=== PATIENT | female | born 1965 | race Caucasian/White ===

== ENCOUNTER → 2017-03-26 | Outpatient (CLI) | payer OTHER ==
--- NOTE | 2017-03-27 06:28 | WWHP ---
DATE OF SERVICE: 03/26/2017 CHIEF COMPLAINT: The patient is here for her routine gynecologic exam. HPI: This is a 51-year-old G3, P3 with an LMP of 03/21/17. She states her last prior menstrual period was in 2014. She has been experiencing hot flashes. She denies taking any treatments for hot flashes. She is not on hormone replacement therapy. The patient states she had normal period flow this month after more than a year and a half of amenorrhea. PAST MEDICAL HISTORY: Degenerative disc disease, chronic hypertension, depression, gastroesophageal reflux disease, prediabetes and obesity. MEDICATIONS: 1. Zoloft 100 mg daily. 2. Sargent 7.5 mg b.i.d. p.r.n. 3. Lisinopril 1 daily. 4. Meloxicam 1 daily. 5. Simvastatin 1 daily. 6. Omeprazole 1 b.i.d. p.r.n. Allergies to KEFLEX. PAST SURGICAL HISTORY: section x2 and she had a tubal ligation with her second one. She has had approximately 5 D&Cs in the past for heavy periods in the and colonoscopy in 2015. PAST ARTIST SUSPECT HISTORY: She has had a period after 1-1/2 years of amenorrhea as above. She does have a history of heavy menses in the past. She has no history of STDs. SOCIAL HISTORY: She denies tobacco or alcohol and drug use. She is single and is not seeing anybody at this time. 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 FAMILY HISTORY: Father and brother had an aortic aneurysm. Mother had diabetes and hypertension. Two maternal grandparents had MA. REVIEW OF SYSTEMS: She has gained about 22 pounds over the last 2 years. She denies respiratory, cardiac or GI problems. PHYSICAL EXAM: Blood pressure is 132/98. Height 5 feet 4 inches. Weight 263 pounds. Temperature 98.7. Pulse 67. This is a well-developed, obese, white female who is alert and oriented x3 in no acute distress. HEENT is within normal limits. NECK: Supple without mass or thyromegaly. CHEST AND LUNGS: Clear to auscultation. HEART: Regular rate and rhythm. Breasts are without mass or discharge. Axillary exam is negative for adenopathy. BACK: Negative for CVA tenderness. Abdomen is obese, soft, nontender without palpable masses. PELVIC EXAM: Normal external genitalia. Cervix and vagina appear normal. There is no evidence of prolapse and minimal atrophy. The uterus is mid position, nongravid size and nontender. There are no palpable adnexal masses or tenderness. Bimanual examination is somewhat limited secondary to her size. Rectovaginal exam is negative for mass or tenderness and is negative for occult blood. EXTREMITIES: Nontender. IMPRESSION: 1. A 51-year-old female with episode of postmenopausal bleeding after 1-1/2 years of amenorrhea. 2. Normal gynecologic exam without active bleeding at this time. PLAN: 1. Pap smear was performed. 2. Self breast examination was discussed. 3. Mammogram is due and a slip was given to the patient for this. 4. The patient will be scheduled for an endometrial biopsy. The procedure was reviewed with the patient. The endometrial biopsy handout was given to the patient. 5. She will also return in one year and p.r.n. MTDD
== END | disposition home or self-care (01) ==
LOC: WWCWWP 07:58
PROVIDERS: ATTEND Obstetrics & Gynecology
DX: Z01.419 Encounter for gynecological examination (general) (routine) without abnormal findings (principal)

== ENCOUNTER → 2017-04-30 | Day surgery (SDC) | payer OTHER ==
--- NOTE | 2017-04-30 13:41 | P.PCN ---
Date of Procedure: 04/30/17 Preoperative Diagnosis: Menopausal bleeding Postoperative Diagnosis: Same Procedure(s) Performed: Endometrial Biopsy Anesthesia: none Surgeon: Wolf Gonzales Estimated Blood Loss (ml): 1 Pathology: none sent Condition: stable Disposition: same day Indications for Procedure: This was a 51 year old G3 PIII with the last normal menstrual period of 2014. She developed period like bleeding on 03/21/2017. She states that bleed was like a normal period. She again developed light bleeding today. Operative Findings: The cervix was somewhat stenotic which made the passing of the endometrial biopsy instrument difficult. Description of Procedure: The procedure was explained to the patient. We also discussed possible risks and complications. The patient was placed in the lithotomy position. Bimanual examination demonstrated a mid-position, non-gravid size uterus. A speculum was inserted into the vagina. There was a small amount of menstrual type blood in the vagina. The cervix and the vagina were prepped with Betadine solution. The anterior lip of the service was grasped with an Allys clamp. The cervix was grossly normal in appearance and nulliparous in appearance. The 3 mm endometrial biopsy instrument was placed into the cervix. The instrument was gently advanced and upon going through the endocervix the patient became very uncomfortable. Any attempt to advance instrument further was very painful for the patient. Because of this discomfort, the procedure was aborted. The maximum distance the instrument was placed was approximately 3.5 cm. No sampling of the endometrium was performed because of the patient's pain and incomplete insertion of the biopsy instrument. The patient felt much better after the instrument was removed. The postprocedure blood pressure was 153/79. The patient was discharged home in stable condition. She was instructed to call she has any problems. She will be referred for possible D&C.

== ENCOUNTER → 2017-05-01 | Outpatient (CLI) | payer OTHER ==
--- NOTE | 2017-05-01 23:21 | CONS ---
CONSULTATION DATE OF CONSULTATION: 05/01/2017 This 51-year-old lady has been evaluated in the sleep center for possible obstructive sleep apnea-hypopnea syndrome. HISTORY OF PRESENT ILLNESS/SLEEP-WAKE EVALUATION: Patient's usual sleep schedule on weekdays is from around 10 p.m. until 5 a.m., on weekend from around 10 or 11 p.m. until 5 or 6:30 a.m. Usually no problem with falling asleep. No TV in bedroom. She prefers to sleep on the side position. According to the family, she sleeps with loud snoring. Patient wakes up from sleep up to 4 times with nocturia and dry mouth. In the morning she wakes up tired, has trouble paying attention, falling asleep during the day, has problems with memory, concentration, claustrophobia. [place] Sleepiness Scale is in extremely high range at 22. She takes naps 2 times a day somewhere in the middle of the day. No history of hypnagogic hallucinations, sleep paralysis or cataplexy. PAST MEDICAL HISTORY: 1. Hypertension. 2. Acid reflux. 3. Hyperlipidemia. 4. Degenerative disc problem in the back and neck area. PAST SURGICAL HISTORY: 1. Cholecystectomy. 2. . MEDICATIONS: 1. Lisinopril. 2. Simvastatin. 3. Omeprazole. 4. Meloxicam. 5. Kelso. FAMILY HISTORY: Positive for obstructive sleep apnea and usage of CPAP in several members of her family, hypertension, hyperlipidemia, arthritis, thyroid problems, diabetes. REVIEW OF SYSTEMS: Awakenings from sleep. Significant excessive daytime sleepiness. Increasing weight for the last 5 years of about 62 pounds. SOCIAL HISTORY: Negative for smoking. Alcohol consumption very rarely. PHYSICAL EXAM: Pleasant lady without distress. VITAL SIGNS: BP 170/83, HR 80, RR 16, height 5 feet 4 inches, weight 262, BMI 44.9. Neck 15-1/2 inches in circumference. Temperature 97.7. Oxygen saturation on room air 97%. HEENT: PERRLA, EOMI. Evaluation of oropharynx showed tongue protrudes midline; extremely low position of soft palate. Mallampati 4. NECK: Supple. No JVD. Thyroid slightly palpable. LUNGS: Clear to percussion and to auscultation. Good air exchange. No wheezing or rhonchi. HEART: S1, S2 irregularly irregular. ABDOMEN: Obese. EXTREMITIES: No clubbing or cyanosis. SHAKER REPAIRER: Awake, alert and oriented x3. Cranial nerves 2 to 7 intact. There is no fasciculation or atrophy noted. No focal deficits observed. IMPRESSION: 1. Loud snoring, multiple awakenings from sleep, extremely low position of soft palate, Mallampati 4, significant excessive daytime sleepiness, [place] Sleepiness Scale of 22, obesity; obstructive sleep apnea-hypopnea syndrome. 2. Extremely high excessive daytime sleepiness with [place] Sleepiness Scale of 22, dictation necessity to include hypersomnia, including narcolepsy in differential diagnosis. 3. Obesity; BMI 44.9. 4. Hypertension. 5. Acid reflux. 6. Hyperlipidemia. 7. Degenerative disc problems in different levels of neck and back. 8. Status post cholecystectomy. 9. Status post . 10.Arthritis in hands, knees and feet. PLAN: 1. Polysomnography for evaluation of patient's breathing during sleep. 2. CPAP/BiPAP titration if sleep study confirms obstructive sleep apnea-hypopnea syndrome. 3. Preferable position during sleep on the side. 4. No driving if patient feels any sleepiness. Patient is aware of civil and criminal liability for unsafe driving. 5. I will see patient for follow-up visit to explain results of testing and following plan. Thank you very much for referring this patient for consultation. Sincerely, Channing York MD, PhD, FAASM Diplomat of [place] [employer] [place] [employer] [facility] [place] MMODL / CASSIEN: [id number] /
== END | disposition home or self-care (01) ==
LOC: SLEEP 16:22
PROVIDERS: ATTEND Internal Medicine
DX: G47.33 Obstructive sleep apnea (adult) (pediatric) (principal); E66.9 Obesity, unspecified; I10 Essential (primary) hypertension; K21.9 Gastro-esophageal reflux disease without esophagitis; E78.5 Hyperlipidemia, unspecified; M13.842 Other specified arthritis, left hand; M13.841 Other specified arthritis, right hand; M13.872 Other specified arthritis, left ankle and foot; M13.871 Other specified arthritis, right ankle and foot; Z68.41 Body mass index [BMI] 40.0-44.9, adult; Z98.890 Other specified postprocedural states; Z79.899 Other long term (current) drug therapy; Z79.1 Long term (current) use of non-steroidal anti-inflammatories (NSAID)
CPT/HCPCS: 99211

== ENCOUNTER 2018-07-03 10:08 | Emergency (ER) | payer OTHER ==
[2018-07-03 10:26] VITALS: BP 146/87; PULSE 86; RESP 16; TEMP 99.4
[2018-07-03 12:49] LABS: ALT 45 U/L (9-52); AST 27 U/L (14-36); Albumin 3.7 g/dL (3.5-5.0); Alkaline Phosphatase 86 U/L (38-126); Anion Gap 8 mmol/L; Blood Urea Nitrogen 19 mg/dL (7-17); Calcium 9.6 mg/dL (8.4-10.2); Carbon Dioxide 26 mmol/L (22-30); Chloride 103 mmol/L (98-107); Glucose 133 mg/dL (74-99); Potassium 4.6 mmol/L (3.5-5.1); Sodium 137 mmol/L (137-145); Total Bilirubin 0.4 mg/dL (0.2-1.3)
[2018-07-03 12:58] LABS: Basophils % (A) 1 %; Eosinophils # (A) 0.2 k/uL (0-0.7); Eosinophils % (A) 2 %; HCT 38.7 % (34.0-46.0); HGB 13.1 gm/dL (11.4-16.0); Lymphocytes # (A) 2.1 k/uL (1.0-4.8); Lymphocytes % (A) 28 %; MCHC 33.8 g/dL (31.0-37.0); MCV 82.7 fL (80.0-100.0); Mean Platelet Volume 6.8; Monocytes # (A) 0.3 k/uL (0-1.0); Monocytes % (A) 4 %; Neutrophils # (A) 4.7 k/uL (1.3-7.7); Neutrophils % (A) 63 %; Platelet Count 252 k/uL (150-450); RBC 4.68 m/uL (3.80-5.40); RDW 13.6 % (11.5-15.5); WBC 7.4 k/uL (3.8-10.6)
--- NOTE | 2018-07-03 14:41 | ED ---
Female Urogenital HPI - General Chief complaint: Vaginal Bleeding Stated complaint: Bleeding Time Seen by Provider: 07/03/18 13:05 Source: patient, RN notes reviewed Mode of arrival: ambulatory Limitations: no limitations - History of Present Illness Initial comments: This a 53-year-old female presents emergency Department chief complaint of vaginal bleeding. Patient states that she is postmenopausal states that she has not had a regular period in several years though she did admit that she had some slight bleeding and spotting one year ago and which she had a D&C by Dr. Weber. Patient states they believe that she had some fibroids causing her bleeding. Patient states this is worse than it was before. Patient states she called her RESTORATIVE ART EMBALMER who advised to go to the nearest emergency department. Patient denies any fever, chills, headache or dizziness. Patient states that she has diffuse abdominal pain. She denies any dysuria or urinary frequency. Denies any vaginal trauma. - Related Data Home Medications Medication Instructions Recorded Confirmed Lisinopril 10 mg PO DAILY 05/16/15 07/03/18 Meloxicam 15 mg PO DAILY 05/16/15 07/03/18 Sertraline [Zoloft] 100 mg PO DAILY 05/16/15 07/03/18 Atorvastatin [Lipitor] 20 mg PO DAILY 07/03/18 07/03/18 Omeprazole 20 mg PO BID 07/03/18 07/03/18 Allergies Allergy/AdvReac Type Severity Reaction Status Date / Time cephalexin [From Keflex] Allergy Rash/Hives Verified 07/03/18 13:50 Review of Systems ROS Statement: Those systems with pertinent positive or pertinent negative responses have been documented in the HPI. ROS Other: All systems not noted in ROS Statement are negative. Past Medical History Past Medical History: GERD/Reflux, Hypertension Additional Past Medical History / Comment(s): PT STATES SHE WAS TOLD PRE DIABETIC; diet control diabetic History of Any Multi-Drug Resistant Organisms: None Reported Past Surgical History: Section, Cholecystectomy, Tubal Ligation Additional Past Surgical History / Comment(s): PAIN INJECTIONS YEARS AGO; L Thumb joint replacement Past Anesthesia/Blood Transfusion Reactions: No Reported Reaction Past Psychological History: Depression Smoking Status: Never smoker Past Alcohol Use History: None Reported Past Drug Use History: None Reported - Past Family History Mother Family Medical History: Myocardial Infarction ([place]) Additional Family Medical History / Comment(s): GRANDPARENTS ON MOTHERS SIDE AGE 50'S OF [place] Father Additional Family Medical History / Comment(s): DAD AT AGE 63 OF AORTIC ANYRYSM General Exam General appearance: alert, in no apparent distress Head exam: Present: atraumatic, normocephalic, normal inspection Eye exam: Present: normal appearance, PERRL, EOMI. Absent: scleral icterus, conjunctival injection, periorbital swelling ENT exam: Present: normal exam, normal oropharynx, mucous membranes moist Neck exam: Present: normal inspection, full ROM. Absent: tenderness, meningismus, lymphadenopathy Respiratory exam: Present: normal lung sounds bilaterally. Absent: respiratory distress, wheezes, rales, rhonchi, stridor Cardiovascular Exam: Present: regular rate, normal rhythm, normal heart sounds. Absent: systolic murmur, diastolic murmur, rubs, gallop, clicks GI/Abdominal exam: Present: soft, tenderness (Diffuse [id number]), normal bowel sounds. Absent: distended, guarding, rebound, rigid Back exam: Absent: CVA tenderness (R), CVA tenderness (L) Skin exam: Present: warm, dry, intact, normal color. Absent: rash Course Vital Signs 07/03/18 10:21 Temperature 99.4 F Pulse Rate 86 Respiratory 16 Rate Blood Pressure 146/87 O2 Sat by Pulse 98 Oximetry Medical Decision Making - Medical Decision Making 53-year-old female presented emergency dept for postmenopausal bleeding. Patient had lab work, ultrasound which shows thickened endometrial lining which is heterogeneous. I did explain that this is concerning as she is postmenopausal. She will need to follow up with her RESTORATIVE ART EMBALMER. I did attempt to contact Dr. Weber with no return phone call. Patient states that she does understand and will follow-up on Friday. - Lab Data Result diagrams: 07/03/18 12:06 07/03/18 12:06 Lab Results 07/03/18 07/03/18 07/03/18 Range/Units 12:06 12:06 12:06 WBC 7.4 (3.8-10.6) k/uL RBC 4.68 (3.80-5.40) m/uL Hgb 13.1 (11.4-16.0) gm/dL Hct 38.7 (34.0-46.0) % MCV 82.7 (80.0-100.0) fL MCH 28.0 (25.0-35.0) pg MCHC 33.8 (31.0-37.0) g/dL RDW 13.6 (11.5-15.5) % Plt Count 252 (150-450) k/uL Neutrophils % 63 % Lymphocytes % 28 % Monocytes % 4 % Eosinophils % 2 % Basophils % 1 % Neutrophils # 4.7 (1.3-7.7) k/uL Lymphocytes # 2.1 (1.0-4.8) k/uL Monocytes # 0.3 (0-1.0) k/uL Eosinophils # 0.2 (0-0.7) k/uL Basophils # 0.0 (0-0.2) k/uL Sodium 137 (137-145) mmol/L Potassium 4.6 (3.5-5.1) mmol/L Chloride 103 (98-107) mmol/L Carbon Dioxide 26 (22-30) mmol/L Anion Gap 8 mmol/L BUN 19 H (7-17) mg/dL Creatinine 0.57 (0.52-1.04) mg/dL Est GFR (CKD-EPI)AfAm >90 (>60 ml/min/1.73 sqM) Est GFR (CKD-EPI)NonAf >90 (>60 ml/min/1.73 sqM) Glucose 133 H (74-99) mg/dL Calcium 9.6 (8.4-10.2) mg/dL Total Bilirubin 0.4 (0.2-1.3) mg/dL AST 27 (14-36) U/L ALT 45 (9-52) U/L Alkaline Phosphatase 86 (38-126) U/L Total Protein 7.0 (6.3-8.2) g/dL Albumin 3.7 (3.5-5.0) g/dL Urine Color Urine Appearance (Clear) Urine pH (5.0-8.0) Ur Specific Wilson (1.001-1.035) Urine Protein (Negative) Urine Glucose (UA) (Negative) Urine Ketones (Negative) Urine Blood (Negative) Urine Nitrite (Negative) Urine Bilirubin (Negative) Urine Urobilinogen (<2.0) mg/dL Ur Leukocyte Esterase (Negative) Urine RBC (0-5) /hpf Urine WBC (0-5) /hpf Urine Bacteria (None) /hpf Urine HCG, Qual (Not Detectd) Blood Type O Positive Blood Type Recheck CABO Indicated Antibody Screen NEGATIVE Spec Expiration Date 07/06/2018230507/03/18 07/03/18 Range/Units 13:27 14:20 WBC (3.8-10.6) k/uL RBC (3.80-5.40) m/uL Hgb (11.4-16.0) gm/dL Hct (34.0-46.0) % MCV (80.0-100.0) fL MCH (25.0-35.0) pg MCHC (31.0-37.0) g/dL RDW (11.5-15.5) % Plt Count (150-450) k/uL Neutrophils % % Lymphocytes % % Monocytes % % Eosinophils % % Basophils % % Neutrophils # (1.3-7.7) k/uL Lymphocytes # (1.0-4.8) k/uL Monocytes # (0-1.0) k/uL Eosinophils # (0-0.7) k/uL Basophils # (0-0.2) k/uL Sodium (137-145) mmol/L Potassium (3.5-5.1) mmol/L Chloride (98-107) mmol/L Carbon Dioxide (22-30) mmol/L Anion Gap mmol/L BUN (7-17) mg/dL Creatinine (0.52-1.04) mg/dL Est GFR (CKD-EPI)AfAm (>60 ml/min/1.73 sqM) Est GFR (CKD-EPI)NonAf (>60 ml/min/1.73 sqM) Glucose (74-99) mg/dL Calcium (8.4-10.2) mg/dL Total Bilirubin (0.2-1.3) mg/dL AST (14-36) U/L ALT (9-52) U/L Alkaline Phosphatase (38-126) U/L Total Protein (6.3-8.2) g/dL Albumin (3.5-5.0) g/dL Urine Color Red Urine Appearance Cloudy H (Clear) Urine pH 5.0 (5.0-8.0) Ur Specific Wilson 1.016 (1.001-1.035) Urine Protein 1+ H (Negative) Urine Glucose (UA) Negative (Negative) Urine Ketones Negative (Negative) Urine Blood Large H (Negative) Urine Nitrite Negative (Negative) Urine Bilirubin Negative (Negative) Urine Urobilinogen <2.0 (<2.0) mg/dL Ur Leukocyte Esterase Moderate H (Negative) Urine RBC >182 H (0-5) /hpf Urine WBC 81 H (0-5) /hpf Urine Bacteria Many H (None) /hpf Urine HCG, Qual Not Detected (Not Detectd) Blood Type Blood Type Recheck Antibody Screen Spec Expiration Date Disposition Clinical Impression: Postmenopausal bleeding, Endometrial thickening on ultrasound Disposition: HOME SELF-CARE Condition: Stable Instructions: Pelvic Pain in Women (ED) Additional Instructions: Please return to the Emergency Department if symptoms worsen or any other concerns. Is patient prescribed a controlled substance at d/c from ED?: No Referrals: Eliecer Oreilly MD [Primary Care Provider] - 1-2 days Ritu Weber MD [REFERRING] - 1-2 days Time of Disposition: 15:25
--- NOTE | 2018-07-03 14:44 | US ---
EXAMINATION TYPE: US transvaginal DATE OF EXAM: 07/03/2018 COMPARISON: CLINICAL HISTORY: Pain. Postmenopausal. Heavy machine. Hx of fibroid per patient. TECHNIQUE: Transvaginal (TV). 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 Patient unable to tolerate exam due to pain. Uterine fundus not well visuali zed due to overlying bowel gas 1. Uterus: Anteverted Fundus not well visualized due to overlying bowel gas. 2. Endometrium: Appears thickened and heterogenous. 3. Right Ovary: Obscured by overlying bowel gas 4. Left Ovary: Obscured by overlying bowel gas 5. Bilateral Adnexa: wnl 6. Posterior cul-de-sac: no free fluid IMPRESSION: 1. Thickened and heterogenous endometrium of uncertain etiology.
[2018-07-03 15:05] LABS: Appearance,Urine Cloudy (Clear); Bacteria,Urine Many /hpf; Bilirubin,Urine Negative (Negative); Blood,Urine Large (Negative); Color,Urine Red; Glucose,Urine (UA) Negative (Negative); Ketones,Urine Negative (Negative); Leukocyte Esterase,Urine Moderate (Negative); Nitrite,Urine Negative (Negative); Protein,Urine 1+ (Negative); RBC,Urine >182 /hpf (0-5); Specific Gravity,Urine 1.016 (1.001-1.035); Urobilinogen,Urine <2.0 mg/dL (<2.0); WBC,Urine 81 /hpf (0-5)
[2018-07-03] MEDS ORDERED: ACET/COD 300 MG/30 MG STARTER PACK 6 TAB BTL PO STA (15:24)
[2018-07-03] MEDS ORDERED: HYDROcodone/APAP 5-325MG 1 EACH TAB PO STA (15:25)
== END 2018-07-03 15:54 | disposition home or self-care (01) ==
LOC: EC 10:08
DX: N95.0 Postmenopausal bleeding (principal); R93.89 Abnormal findings on diagnostic imaging of other specified body structures; R10.84 Generalized abdominal pain; I10 Essential (primary) hypertension; K21.9 Gastro-esophageal reflux disease without esophagitis; F32.9 Major depressive disorder, single episode, unspecified; Z88.1 Allergy status to other antibiotic agents; Z79.1 Long term (current) use of non-steroidal anti-inflammatories (NSAID); Z79.899 Other long term (current) drug therapy; Z90.49 Acquired absence of other specified parts of digestive tract; Z98.51 Tubal ligation status
CPT/HCPCS: 36415; 76830; 80053; 81001; 81025; 85025; 86850; 86900; 86901; 99284

== ENCOUNTER 2018-09-01 13:43 | Emergency (ER) | payer OTHER ==
[2018-09-01 13:55] VITALS: RESP 18
--- NOTE | 2018-09-01 14:33 | ED ---
General Adult HPI - General Chief complaint: Chest Pain Stated complaint: Chest pain Source: patient, EMS Mode of arrival: EMS Limitations: no limitations - Related Data Home Medications Medication Instructions Recorded Confirmed Lisinopril 10 mg PO DAILY 05/16/15 09/01/18 Meloxicam 15 mg PO DAILY 05/16/15 09/01/18 Sertraline [Zoloft] 100 mg PO DAILY 05/16/15 09/01/18 Atorvastatin [Lipitor] 20 mg PO DAILY 07/03/18 09/01/18 Omeprazole 20 mg PO DAILY 07/03/18 09/01/18 Previous Rx's Medication Instructions Recorded Meclizine [Antivert] 25 mg PO TID PRN #20 tab 09/01/18 Allergies Allergy/AdvReac Type Severity Reaction Status Date / Time cephalexin [From Keflex] Allergy Rash/Hives Verified 09/01/18 13:54 Review of Systems ROS Statement: Those systems with pertinent positive or pertinent negative responses have been documented in the HPI. ROS Other: All systems not noted in ROS Statement are negative. Past Medical History Past Medical History: GERD/Reflux, Hypertension Additional Past Medical History / Comment(s): PT STATES SHE WAS TOLD PRE DIABETIC; diet control diabetic History of Any Multi-Drug Resistant Organisms: None Reported Past Surgical History: Section, Cholecystectomy, Tubal Ligation Additional Past Surgical History / Comment(s): PAIN INJECTIONS YEARS AGO; L Thumb joint replacement Past Anesthesia/Blood Transfusion Reactions: No Reported Reaction Past Psychological History: Depression Smoking Status: Never smoker Past Alcohol Use History: None Reported Past Drug Use History: None Reported - Past Family History Mother Family Medical History: Myocardial Infarction ([place]) Additional Family Medical History / Comment(s): GRANDPARENTS ON MOTHERS SIDE AGE 50'S OF [place] Father Additional Family Medical History / Comment(s): DAD AT AGE 63 OF AORTIC ANYRYSM General Exam Limitations: no limitations Course Vital Signs 09/01/18 09/01/18 13:44 15:03 Temperature 97.7 F Pulse Rate 87 73 Respiratory 18 18 Rate Blood Pressure 125/94 129/70 O2 Sat by Pulse 96 98 Oximetry Medical Decision Making - Medical Decision Making Dictation was produced using [employer] dictation software. please excuse any grammatical, word or spelling errors. Chief Complaint: 53-year-old female past medical history of GERD and hypertension presents after episodes of vertigo. History of Present Illness: She is 53-year-old female. She has past medical history of vertigo. 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 Patient states she was at work ambulating when she felt an intense roach of vertiginous symptoms. She reports that she feels as though the floor was calm enough to her. She braced herself immediately. She states that last for about 5 minutes. She did walk to the bathroom she felt she was stumbling with right-sided predilection. Patient feels fine now. She got EMS after the symptoms and was transferred to the emergency department for further evaluation. She feels a symptomatic at this time however she does feel a little nauseous. The ROS documented in this emergency department record has been reviewed and confirmed by me. Those systems with pertinent positive or negative responses have been documented in the HPI. All other systems are other negative and/or noncontributory. PHYSICAL EXAM: General Impression: Alert and oriented x3, not in acute distress HEENT: Normocephalic atraumatic, extra-ocular movements intact, pupils equal and reactive to light bilaterally, mucous membranes moist. Cardiovascular: Heart regular rate and rhythm, S1&S2 audible, no murmurs, rubs or gallops Chest: Lungs clear to auscultation bilaterally, no rhonchi, no wheeze, no rales Abdomen: Bowel sounds present, abdomen soft, non-tender, non-distended, no organomegaly Musculoskeletal: Pulses present and equal in all extremities, no peripheral edema Motor: Power 5/5 bilaterally, no focal deficits noted Neurological: CN II-XII grossly intact, no focal motor or sensory deficits noted Skin: Intact with no visualized rashes Psych: Normal affect and mood ED course: 53-year-old female with past medical history of GERD and hypertension since with episodic. On arrival are within acceptable limits. Patient is asymptomatic at this time. Patient has no neuro deficits. Laboratory evaluation obtained. CBC unremarkable. Mild panel unremarkable. Urinalysis is negative. Patient given Antivert and aspirin. Patient reevaluated and does not have recurrence of symptoms. Clinical presentation consistent with acute episodic peripheral vertigo. Patient able to ambulate and is tolerating by mouth. Patient prescription for Antivert. She is told to follow-up with primary care physician upon discharge. Patient given strict return precautions should she have recurrent symptoms. Patient understandable agreeable to disposition. EKG interpretation: Ventricular rate 78, normal sinus rhythm, IN interval 144, Q 70, QTC 476. No IN prolongation, no QTC prolongation, no ST or T-wave changes noted. Overall, this EKG is unremarkable - Lab Data Result diagrams: 09/01/18 14:23 09/01/18 14:23 Lab Results 09/01/18 09/01/18 09/01/18 Range/Units 14:23 14:23 14:23 WBC 8.9 (3.8-10.6) k/uL RBC 4.68 (3.80-5.40) m/uL Hgb 13.0 (11.4-16.0) gm/dL Hct 38.8 (34.0-46.0) % MCV 82.9 (80.0-100.0) fL MCH 27.7 (25.0-35.0) pg MCHC 33.4 (31.0-37.0) g/dL RDW 13.5 (11.5-15.5) % Plt Count 277 (150-450) k/uL Neutrophils % 70 % Lymphocytes % 22 % Monocytes % 4 % Eosinophils % 2 % Basophils % 0 % Neutrophils # 6.2 (1.3-7.7) k/uL Lymphocytes # 2.0 (1.0-4.8) k/uL Monocytes # 0.3 (0-1.0) k/uL Eosinophils # 0.2 (0-0.7) k/uL Basophils # 0.0 (0-0.2) k/uL Sodium 138 (137-145) mmol/L Potassium 4.3 (3.5-5.1) mmol/L Chloride 103 (98-107) mmol/L Carbon Dioxide 27 (22-30) mmol/L Anion Gap 8 mmol/L BUN 16 (7-17) mg/dL Creatinine 0.56 (0.52-1.04) mg/dL Est GFR (CKD-EPI)AfAm >90 (>60 ml/min/1.73 sqM) Est GFR (CKD-EPI)NonAf >90 (>60 ml/min/1.73 sqM) Glucose 150 H (74-99) mg/dL Calcium 9.2 (8.4-10.2) mg/dL Magnesium 1.7 (1.6-2.3) mg/dL Total Creatine Kinase 48 (30-135) U/L CK-MB (CK-2) 0.5 (0.0-2.4) ng/mL CK-MB (CK-2) Rel Index 1.0 Troponin I <0.012 (0.000-0.034) ng/mL Urine Color Urine Appearance (Clear) Urine pH (5.0-8.0) Ur Specific [place] (1.001-1.035) Urine Protein (Negative) Urine Glucose (UA) (Negative) Urine Ketones (Negative) Urine Blood (Negative) Urine Nitrite (Negative) Urine Bilirubin (Negative) Urine Urobilinogen (<2.0) mg/dL Ur Leukocyte Esterase (Negative) Urine RBC (0-5) /hpf Urine WBC (0-5) /hpf Ur Squamous Epith Cells (0-4) /hpf Urine Bacteria (None) /hpf Urine Mucus (None) /hpf 09/01/18 Range/Units 15:05 WBC (3.8-10.6) k/uL RBC (3.80-5.40) m/uL Hgb (11.4-16.0) gm/dL Hct (34.0-46.0) % MCV (80.0-100.0) fL MCH (25.0-35.0) pg MCHC (31.0-37.0) g/dL RDW (11.5-15.5) % Plt Count (150-450) k/uL Neutrophils % % Lymphocytes % % Monocytes % % Eosinophils % % Basophils % % Neutrophils # (1.3-7.7) k/uL Lymphocytes # (1.0-4.8) k/uL Monocytes # (0-1.0) k/uL Eosinophils # (0-0.7) k/uL Basophils # (0-0.2) k/uL Sodium (137-145) mmol/L Potassium (3.5-5.1) mmol/L Chloride (98-107) mmol/L Carbon Dioxide (22-30) mmol/L Anion Gap mmol/L BUN (7-17) mg/dL Creatinine (0.52-1.04) mg/dL Est GFR (CKD-EPI)AfAm (>60 ml/min/1.73 sqM) Est GFR (CKD-EPI)NonAf (>60 ml/min/1.73 sqM) Glucose (74-99) mg/dL Calcium (8.4-10.2) mg/dL Magnesium (1.6-2.3) mg/dL Total Creatine Kinase (30-135) U/L CK-MB (CK-2) (0.0-2.4) ng/mL CK-MB (CK-2) Rel Index Troponin I (0.000-0.034) ng/mL Urine Color Yellow Urine Appearance Clear (Clear) Urine pH 5.0 (5.0-8.0) Ur Specific [place] 1.012 (1.001-1.035) Urine Protein 1+ H (Negative) Urine Glucose (UA) Negative (Negative) Urine Ketones Negative (Negative) Urine Blood Negative (Negative) Urine Nitrite Negative (Negative) Urine Bilirubin Negative (Negative) Urine Urobilinogen <2.0 (<2.0) mg/dL Ur Leukocyte Esterase Negative (Negative) Urine RBC <1 (0-5) /hpf Urine WBC 5 (0-5) /hpf Ur Squamous Epith Cells 2 (0-4) /hpf Urine Bacteria Occasional H (None) /hpf Urine Mucus Rare H (None) /hpf Disposition Clinical Impression: Vertigo Disposition: HOME SELF-CARE Condition: Good Instructions: Dizziness (ED) Prescriptions: Meclizine [Antivert] 25 mg PO TID PRN #20 tab PRN Reason: Vertigo Is patient prescribed a controlled substance at d/c from ED?: No Referrals: Eliecer Oreilly MD [Primary Care Provider] - 1-2 days Time of Disposition: 16:56
[2018-09-01 14:47] LABS: Basophils % (A) 0 %; Eosinophils # (A) 0.2 k/uL (0-0.7); Eosinophils % (A) 2 %; HCT 38.8 % (34.0-46.0); Lymphocytes % (A) 22 %; MCH 27.7 pg (25.0-35.0); MCHC 33.4 g/dL (31.0-37.0); MCV 82.9 fL (80.0-100.0); Mean Platelet Volume 6.7; Monocytes # (A) 0.3 k/uL (0-1.0); Monocytes % (A) 4 %; Neutrophils # (A) 6.2 k/uL (1.3-7.7); Neutrophils % (A) 70 %; Platelet Count 277 k/uL (150-450); RBC 4.68 m/uL (3.80-5.40); RDW 13.5 % (11.5-15.5); WBC 8.9 k/uL (3.8-10.6)
[2018-09-01] MEDS ORDERED: MECLIZINE 12.5 MG TAB PO STA (14:48)
[2018-09-01] MEDS ORDERED: ASPIRIN 81 MG PO STA (14:59)
[2018-09-01 15:07] LABS: Anion Gap 8 mmol/L; Blood Urea Nitrogen 16 mg/dL (7-17); Calcium 9.2 mg/dL (8.4-10.2); Carbon Dioxide 27 mmol/L (22-30); Chloride 103 mmol/L (98-107); Glucose 150 mg/dL (74-99); Magnesium 1.7 mg/dL (1.6-2.3); Potassium 4.3 mmol/L (3.5-5.1); Sodium 138 mmol/L (137-145)
[2018-09-01 15:31] LABS: Appearance,Urine Clear (Clear); Bacteria,Urine Occasional /hpf; Bilirubin,Urine Negative (Negative); Blood,Urine Negative (Negative); Color,Urine Yellow; Glucose,Urine (UA) Negative (Negative); Ketones,Urine Negative (Negative); Leukocyte Esterase,Urine Negative (Negative); Mucus,Urine Rare /hpf; Nitrite,Urine Negative (Negative); Protein,Urine 1+ (Negative); RBC,Urine <1 /hpf (0-5); Specific Gravity,Urine 1.012 (1.001-1.035); Squamous Epithelial Cell,Urine 2 /hpf (0-4); Urobilinogen,Urine <2.0 mg/dL (<2.0)
[2018-09-01 15:44] LABS: Creatine Kinase 48 U/L (30-135)
[2018-09-01 15:58] LABS: Creatine Kinase MB 0.5 ng/mL (0.0-2.4); Troponin I <0.012 ng/mL (0.000-0.034)
--- NOTE | 2018-09-01 16:08 | XR ---
EXAMINATION TYPE: XR chest 2V DATE OF EXAM: 09/01/2018 COMPARISON: 07/31/2015 HISTORY: Intermittent chest pain with nausea and near syncope for 2 days TECHNIQUE: Frontal and lateral views of the chest are obtained. FINDINGS: There is no focal air space opacity, pleural effusion, or pneumothorax seen. The cardiac silhouette size is within normal limits. The osseous structures are intact. Minimal multilevel dege nerative changes of the thoracic spine are noted. IMPRESSION: No acute cardiopulmonary process.
[2018-09-01 17:22] VITALS: BP 132/91; PULSE 84; TEMP 97.8
== END 2018-09-01 17:20 | disposition home or self-care (01) ==
LOC: EC 13:43
DX: R42 Dizziness and giddiness (principal); R07.9 Chest pain, unspecified; K21.9 Gastro-esophageal reflux disease without esophagitis; I10 Essential (primary) hypertension; F32.9 Major depressive disorder, single episode, unspecified; E11.9 Type 2 diabetes mellitus without complications; Z79.899 Other long term (current) drug therapy; Z79.1 Long term (current) use of non-steroidal anti-inflammatories (NSAID); Z88.1 Allergy status to other antibiotic agents; Z96.692 Finger-joint replacement of left hand
CPT/HCPCS: 36415; 71046; 80048; 81001; 82550; 82553; 83735; 84484; 85025; 93005; 99285

== ENCOUNTER → 2018-09-28 | Outpatient (CLI) | payer OTHER ==
--- NOTE | 2018-09-28 22:10 | CT ---
EXAMINATION TYPE: CT brain wo con DATE OF EXAM: 09/28/2018 COMPARISON: None HISTORY: Syncope and loss of balance per order. CT DLP: 1168 mGycm. Automated Exposure Control for Dose Reduction was Utilized. TECHNIQUE: CT scan of the head is performed without contrast. FINDINGS: There is no acute intracranial hemorrhage, mass effect, or midline shift identified. The ventricles and sulci are within normal limits in size. The globes are intact bilaterally. Mild to m oderate lobulated mucosal thickening inferior left maxillary sinus is redemonstrated. Otherwise paran robert sinuses are clear. Globes are intact bilaterally. No suspicious opacification mastoid air cells is present. IMPRESSION: No acute intracranial hemorrhage or midline shift is seen.
--- NOTE | 2018-09-29 10:03 | US ---
EXAMINATION TYPE: US carotid duplex BILAT DATE OF EXAM: 09/28/2018 COMPARISON: CLINICAL HISTORY: G45.9 TIA; R59 Syncope; R26.9 Loss of balance. HTN, no hx of TIA per patient EXAM MEASUREMENTS: RIGHT: Peak Systolic Velocity (PSV) cm/sec ----- Right CCA: 77.8 ----- Right ICA: 87.7 ----- Right ECA: 95.4 ICA/CCA ratio: 1.1 RIGHT: End Diastole cm/sec ----- Right CCA: 21.6 ----- Right ICA: 22.7 ----- Right ECA: 16.1 LEFT: Peak Systolic Velocity (PSV) cm/sec ----- Left CCA: 73.4 ----- Left ICA: 82.8 ----- Left ECA: 88.0 ICA/CCA ratio: 1.1 LEFT: End Diastole cm/sec ----- Left CCA: 20.5 ----- Left ICA: 24.5 ----- Left ECA: 14.1 VERTEBRALS (direction of flow): Right Vertebral: Antegrade Left Vertebral: Antegrade Rhythm: Normal No elevated velocities, significant stenosis, plaque or wall thickening. Grayscale, color Doppler, spectral Doppler imaging performed of the carotid arteries IMPRESSION: No hemodynamic significant stenosis of the proximal internal carotid arteries bilaterall y by Doppler criteria, an indirect measurement of carotid stenosis
== END | disposition home or self-care (01) ==
LOC: RADCTMAIN 17:08
PROVIDERS: ATTEND Internal Medicine
DX: R55 Syncope and collapse (principal); R26.9 Unspecified abnormalities of gait and mobility; Z88.1 Allergy status to other antibiotic agents
CPT/HCPCS: 70450; 93880

== ENCOUNTER → 2020-10-27 | Outpatient (CLI) | payer OTHER ==
--- NOTE | 2020-10-27 09:31 | XR ---
Left foot HISTORY: Left foot pain 3 views of the left foot There is a mild hallux valgus deformity with osteoarthritic change. Bone mineralization is reduced. S ome medial subluxation noted at the metatarsophalangeal joint of the third digit. No fracture or disl ocation. There is a plantar cannula spur. Some spurring present at the intertarsal joints, tarsometat arsal joints. IMPRESSION: Osteoarthritis and additional findings above.
== END | disposition home or self-care (01) ==
LOC: RADXRMAIN 08:11
PROVIDERS: ATTEND Internal Medicine
DX: M19.072 Primary osteoarthritis, left ankle and foot (principal); M21.072 Valgus deformity, not elsewhere classified, left ankle; M77.32 Calcaneal spur, left foot; S93.145A Subluxation of metatarsophalangeal joint of left lesser toe(s), initial encounter

== ENCOUNTER → 2022-04-30 | Outpatient (CLI) | payer OTHER ==
--- NOTE | 2022-04-30 15:47 | XR ---
EXAMINATION TYPE: XR cervical spine comp DATE OF EXAM: 04/30/2022 COMPARISON: NONE HISTORY: Pain TECHNIQUE: Four views are submitted. FINDINGS: The odontoid is intact. There are no compression deformities. The prevertebral soft tissue structur es are within normal limits. Severe degenerative disc disease C4-5, C5-6 and C6-C7 with posterior sp ondylosis. There is bilateral foraminal encroachment. IMPRESSION: 1. Severe degenerative disc disease at multiple levels with posterior spondylosis and bilateral maritza inal encroachment. Recommend follow-up MRI..
--- NOTE | 2022-04-30 15:56 | XR ---
EXAM TYPE: LUMBAR SPINE X RAY SERIES COMPARISON: NONE HISTORY: Pain TECHNIQUE: 4 views are submitted. FINDINGS: Alignment is anatomic. The pedicles are intact. The transverse processes are intact. There is no s pondylolysis or spondylolisthesis. Surgical clips in the gallbladder fossa. IMPRESSION: 1. Severe degenerative disc disease L4-L5. Vacuum disc and posterior spondylosis suspected. Severe de generative disc disease L4-L5 with vacuum disc recommend follow-up MRI..
--- NOTE | 2022-04-30 16:01 | XR ---
EXAMINATION TYPE: XR thoracic spine 2V DATE OF EXAM: 04/30/2022 COMPARISON: NONE HISTORY: Pain TECHNIQUE: 3 views submitted FINDINGS: Alignment is anatomic. There is no compression deformities. Multilevel moderate to severe hypertroph ic and degenerative disc disease involving the mid and lower thoracic spine.. Surgical clips in the right upper quadrant. IMPRESSION: 1. Multilevel hypertrophic and degenerative changes of the spine most marked involving the lower thor acic spine. Recommend MRI..
== END | disposition home or self-care (01) ==
LOC: RADXRMAIN 11:54
PROVIDERS: ATTEND Nurse Practitioner Family
DX: M50.323 Other cervical disc degeneration at C6-C7 level (principal); M47.816 Spondylosis without myelopathy or radiculopathy, lumbar region; M47.812 Spondylosis without myelopathy or radiculopathy, cervical region; M51.36 Other intervertebral disc degeneration, lumbar region; M47.814 Spondylosis without myelopathy or radiculopathy, thoracic region
CPT/HCPCS: 72050; 72070; 72110

== ENCOUNTER → 2022-11-20 | Outpatient (CLI) | payer OTHER ==
[2022-11-20 09:33] VITALS: BP 117/83; PULSE 84; RESP 18; TEMP 98.5
--- NOTE | 2022-11-20 09:49 | P.CONS ---
History of Present Illness - Reason for Consult Consult date: 11/20/22 - Chief Complaint Lower back and left leg pain - History of Present Illness This is a 57-year-old morbidly obese lady with long-standing history of lower back pain and recent radiation to the left ankle with occasional tingling in the left leg. The patient tried physical therapy previously with limited results. She never had any surgeries on her back. Her pain gets worse with any activity especially standing and walking for too long and improves by stretching. The pain occasionally wakes her up at night but she denies any bowel or bladder dysfunction. She uses Mobic for her pain and also marijuana pills as she states. She denies tobacco. The patient is applying for SSI. She has history of diabetes and hypertension She had laparoscopic cholecystectomy Review of Systems Constitutional: Denies chills, Denies fever Cardiovascular: Denies chest pain, Denies shortness of breath Respiratory: Denies cough Musculoskeletal: Reports as per HPI Integumentary: Denies pruritus, Denies rash Neurological: Reports as per HPI Endocrine: Reports as per HPI, Reports high blood sugars Past Medical History Past Medical History: GERD/Reflux, Hypertension Additional Past Medical History / Comment(s): PT STATES SHE WAS TOLD PRE DIABETIC; diet control diabetic History of Any Multi-Drug Resistant Organisms: None Reported Past Surgical History: Section, Cholecystectomy, Tubal Ligation Additional Past Surgical History / Comment(s): PAIN INJECTIONS YEARS AGO; L Thumb joint replacement Past Anesthesia/Blood Transfusion Reactions: No Reported Reaction Smoking Status: Unknown if ever smoked - Past Family History Mother Family Medical History: Myocardial Infarction ([place]) Additional Family Medical History / Comment(s): GRANDPARENTS ON MOTHERS SIDE AGE 50'S OF [place] Father Additional Family Medical History / Comment(s): DAD AT AGE 63 OF AORTIC ANYRYSM Medications and Allergies Home Medications Medication Instructions Recorded Confirmed Type Meloxicam 15 mg PO DAILY 05/16/15 09/01/18 History Sertraline [Zoloft] 100 mg PO DAILY 05/16/15 09/01/18 History lisinopriL [Lisinopril] 10 mg PO DAILY 05/16/15 09/01/18 History Atorvastatin [Lipitor] 20 mg PO DAILY 07/03/18 09/01/18 History Omeprazole 20 mg PO DAILY 07/03/18 09/01/18 History Meclizine [Antivert] 25 mg PO TID PRN #20 tab 09/01/18 Rx Allergies Allergy/AdvReac Type Severity Reaction Status Date / Time cephalexin [From Keflex] Allergy Rash/Hives Verified 09/01/18 13:54 Physical Exam Vitals: Vital Signs Temp Pulse Resp BP Pulse Ox 11/20/22 09:11 98.5 F 84 18 117/83 96 - Constitutional General appearance: morbidly obese - EENT Eyes: PERRLA - Neurologic Neuro exam of the lower extremities showed normal and symmetrical deep tendon reflexes and normal muscle strength in the major muscle groups. Positive tenderness in the lumbar paravertebral musculature Significant tenderness around the right sacral joint Positive Armond's test on the right side Straight leg raising test is negative bilaterally Neurologic: CNII-XII intact - Psychiatric Psychiatric: A&O x's 3, appropriate affect, intact judgment & insight Results Results: An old MRI from 2014 showed severe degenerative disc disease at L4 5 and L5-S1 levels with no neural foraminal or central canal stenosis. Assessment and Plan Plan: This is a 47-year-old morbidly obese lady with the following diagnoses: Left lumbar radiculopathy: Started recently with no recent MRI of the lumbar spine to exactly what level is involved. The last MRI showed only degenerative disc disease at multiple levels and no neuroforaminal stenosis or central canal stenosis at that time in 2014. We might need to order an MRI without contrast of the lumbar spine. Lumbar degenerative disc disease: Severe at L4 5 and L5-S1 levels Right sacroiliitis: Positive tenderness around the sacroiliac joint and significant pain with Armond's test on the right side. She may benefit from getting right sacroiliac joint steroid injection under fluoroscopic guidance. I will try to get approval for the lumbar spine MRI without contrast for further workup for her recent left lumbar radiculopathy. Meanwhile we can schedule her for right-sided grade joint steroid injection under fluoroscopic guidance since this is a separate diagnosis. I thank you for the referral
== END ==
LOC: PNWHC3 08:24
PROVIDERS: ATTEND Anesthesiology
DX: M51.16 Intervertebral disc disorders with radiculopathy, lumbar region (principal); M46.1 Sacroiliitis, not elsewhere classified; E66.01 Morbid (severe) obesity due to excess calories; Z88.1 Allergy status to other antibiotic agents; E11.9 Type 2 diabetes mellitus without complications; I10 Essential (primary) hypertension; R20.2 Paresthesia of skin; K21.9 Gastro-esophageal reflux disease without esophagitis; Z79.1 Long term (current) use of non-steroidal anti-inflammatories (NSAID); Z82.49 Family history of ischemic heart disease and other diseases of the circulatory system; Z90.49 Acquired absence of other specified parts of digestive tract; M79.605 Pain in left leg
CPT/HCPCS: 99211

== ENCOUNTER → 2023-02-04 | Outpatient (CLI) | payer OTHER ==
--- NOTE | 2023-02-05 16:45 | MM ---
Reason for Exam: Screening (asymptomatic). Last mammogram was performed 6 year(s) and 11 month(s) ago. Patient History: Menarche at age 11. First Full-Term at age 22. Postmenopausal. Risk Values: Simi 5 year model risk: 1.3%. NCI Lifetime model risk: 7.7%. Prior Study Comparison: 11/12/2013 Bilateral Screening Mammogram, [facility]. 08/12/2014 Bilateral Diagnostic Mammogram, [facility]. 03/04/2016 Bilateral Screening Mammogram, [facility]. Tissue Density: There are scattered fibroglandular densities. Findings: Analyzed By CAD. Pattern appears symmetrical and stable. Chronic nodularity is within the right breast. There are some nodules within the left breast which appear better visualized on the current examination. Additional workup is recommended. The largest of these measures 7 mm in transverse dimension located 5 cm from the nipple in the upper outer left breast. Ultrasound may be required to complete the workup. Within the right breast No suspicious groups of microcalcifications, spiculated or lobular masses, architectural distortion or other secondary signs of malignancy are mammographically apparent. Overall Assessment: Incomplete: need additional imaging evaluation, BI-RAD 0 Management: Diagnostic Mammogram of the left breast. A negative mammogram report should not preclude additional follow up of suspicious palpable abnormalities. Patient should continue monthly self breast exam. A clinical breast exam by your physician is recommended on an annual basis and results should be correlated with mammographic findings. Electronically signed and approved by: Godwin Mckeon D.O. Radiologis
== END | disposition home or self-care (01) ==
LOC: RADMAMWWP 14:20
PROVIDERS: ATTEND Family Medicine
DX: Z12.31 Encounter for screening mammogram for malignant neoplasm of breast (principal); Z78.0 Asymptomatic menopausal state
CPT/HCPCS: 77067

== ENCOUNTER → 2023-02-10 | Outpatient (CLI) | payer OTHER ==
--- NOTE | 2023-02-10 08:36 | MM ---
Reason for Exam: Additional evaluation requested from abnormal screening. Last screening mammogram was performed less than 1 month ago. Patient History: Menarche at age 11. First Full-Term at age 22. Postmenopausal. Risk Values: Simi 5 year model risk: 1.3%. NCI Lifetime model risk: 7.7%. Prior Study Comparison: 08/12/2014 Bilateral Diagnostic Mammogram, [facility]. 03/04/2016 Bilateral Screening Mammogram, [facility]. 02/04/2023 Bilateral MG screening mammo w CAD, [facility]. Tissue Density: Left: There are scattered fibroglandular densities. Findings: Analyzed By CAD. 5 mm ovoid equal density well-circumscribed mass within the upper outer left breast approximately 4.5 mm from the nipple. No suspicious group of calcifications. Overall Assessment: Incomplete: need additional imaging evaluation, BI-RAD 0 Management: Diagnostic Breast Ultrasound of the left breast. A clinical breast exam by your physician is recommended on an annual basis and results should be correlated with mammographic findings. This exam should not preclude additional follow-up of suspicious palpable abnormalities. Results were given to the patient verbally at the time of exam. Note on Simi scores and lifetime risk: 1. A Simi score greater than 3% is considered moderate risk. If this is the case, consider specialist referral to assess eligibility for a risk reducing agent. If overall lifetime risk for the development of breast cancer is 20% or higher, the patient may qualify for future screening with alternating mammogram and breast MRI. Electronically signed and approved by: Ethan Velasco D.O.
--- NOTE | 2023-02-10 08:55 | USB ---
Reason for Exam: Additional evaluation requested from abnormal screening. Patient History: Menarche at age 11. First Full-Term at age 22. Postmenopausal. Risk Values: Simi 5 year model risk: 1.3%. NCI Lifetime model risk: 7.7%. Technique: Method: Targeted. Prior Study Comparison: 08/12/2014 Bilateral Diagnostic Mammogram, [facility]. 03/04/2016 Bilateral Screening Mammogram, [facility]. 02/04/2023 Bilateral MG screening mammo w CAD, [facility]. Findings: The upper outer quadrant of the left breast, the axilla of the left breast and the retroareolar of the left breast were scanned. Targeted ultrasound left breast from 12-3 o'clock was performed with additional evaluation of the axilla and nipple. There is an ovoid thin-walled anechoic lesion within the left breast at 2:00 4 cm from the nipple measuring 0.3 x 0.3 x 0.4 cm corresponding mammography. An adjacent vessel is identified. This is parallel in orientation with circumscribed margin. No definitive posterior acoustic enhancement. This could represent a cyst. Overall Assessment: Probably benign, BI-RAD 3 Management: Diagnostic Breast Ultrasound of the left breast in 6 months. A clinical breast exam by your physician is recommended on an annual basis and results should be correlated with mammographic findings. This exam should not preclude additional follow-up of suspicious palpable abnormalities. Results were given to the patient verbally at the time of exam. Electronically signed and approved by: Ethan Velasco D.O.
== END | disposition home or self-care (01) ==
LOC: RADMAMWWP 08:12
PROVIDERS: ATTEND Family Medicine
DX: R92.8 Other abnormal and inconclusive findings on diagnostic imaging of breast (principal); Z78.0 Asymptomatic menopausal state
CPT/HCPCS: 77065; 76642; G0279; 77061

== ENCOUNTER 2023-04-04 08:28 | Day surgery (SDC) | payer OTHER ==
[2023-04-02 09:46] VITALS: BMI 41.1
[2023-04-04] MEDS ORDERED: LACTATED RINGERS 1,000 ML IV SCH (08:49)
[2023-04-04] MEDS ORDERED: LIDOCAINE 1% (10MG/ML) FOR IV START INTRADERMA PRN (08:49)
[2023-04-04 09:11] VITALS: TEMP 97.5
[2023-04-04 09:16] LABS: Glucose,Whole Blood 222 mg/dL (70-110)
[2023-04-04] MEDS ORDERED: PROPOFOL 10 MG/ML 20 ML VIAL IV ONE (10:12)
[2023-04-04] MEDS ORDERED: LIDOCAINE 2% INJ 20 MG/ML (2 ML VIAL) ONE (10:12)
--- NOTE | 2023-04-04 10:20 | P.PCN ---
Date of Procedure: 04/04/23 Procedure(s) Performed: BRIEF HISTORY: Patient is a 57-year-old, pleasant, white female scheduled for an upper endoscopy as a part of evaluation long-standing history of GERD. She was on omeprazole 20 mg daily with no help and recently was changed to Nexium 40 mg daily. She is scheduled for an upper endoscopy to rule out complicated reflux disease. PROCEDURE PERFORMED: Esophagogastroduodenoscopy with biopsy. PREOPERATIVE DIAGNOSIS: Long-standing history of GERD. IV sedation per anesthesia. PROCEDURE: After informed consent was obtained, the patient was brought into the endoscopy unit. IV sedation was administered by Anesthesia under continuous monitoring. Initially the Olympus GIF-140 video endoscope was inserted into the mouth. Esophagus intubated without any difficulty. It was gradually advanced into the stomach and duodenum and carefully examined. The bulb and the second part of the duodenum appeared normal. The scope at this time was withdrawn to the stomach, adequately insufflated with air, and upon careful examination, mucosa of the antrum, had mild gastritis. There was large amount of retained solid food in the stomach consistent with diabetic gastroparesis. The visualized lesions of the body, cardia and the fundus appeared normal. The scope was then withdrawn into the esophagus. The GE junction was located at 41 cm from the incisors. The esophagus appeared normal. There were no erosions or ulcerations seen, biopsies were done from the distal esophagus and the patient tolerated the procedure well. IMPRESSION: 1. Retained food in the stomach suggestive of diabetic gastroparesis. 2. Mild antral gastritis. RECOMMENDATIONS: The findings of this examination were discussed with the patient as well as a family. She was advised to follow with the biopsy results. In the meantime continue with Nexium 40 mg daily and follow antireflux measures.
[2023-04-04 10:31] VITALS: PULSE 77; RESP 18
[2023-04-04 10:51] VITALS: BP 144/83
== END 2023-04-04 10:58 | disposition home or self-care (01) ==
LOC: ORWHC2ENDO 08:28
PROVIDERS: ATTEND Internal Medicine Gastroenterology
DX: K21.9 Gastro-esophageal reflux disease without esophagitis (principal); K29.70 Gastritis, unspecified, without bleeding; K20.90 Esophagitis, unspecified without bleeding; I10 Essential (primary) hypertension; E78.5 Hyperlipidemia, unspecified; F12.90 Cannabis use, unspecified, uncomplicated; E11.9 Type 2 diabetes mellitus without complications; M19.90 Unspecified osteoarthritis, unspecified site; Z79.899 Other long term (current) drug therapy
CPT/HCPCS: 88305; 88342; 43239; J2704; J2001

== ENCOUNTER → 2023-08-12 | Outpatient (CLI) | payer OTHER ==
--- NOTE | 2023-08-12 11:26 | USB ---
Reason for Exam: Follow-up at short interval from prior study. Patient History: Menarche at age 11. First Full-Term at age 22. Postmenopausal. Risk Values: Simi 5 year model risk: 1.3%. NCI Lifetime model risk: 7.6%. Technique: Method: Targeted. Prior Study Comparison: 03/04/2016 Bilateral Screening Mammogram, [facility]. 02/04/2023 Bilateral MG screening mammo w CAD, [facility]. 02/10/2023 Left MG 3D work up w/cad , [facility]. Findings: The upper outer quadrant of the left breast, the axilla of the left breast and the retroareolar of the left breast were scanned. Targeted ultrasound left breast upper outer quadrant 12:00 to 3:00 including scanning of the subareolar region and axilla. At the 2:00 position 4 cm from the nipple, there is redemonstration of a benign 5 mm cyst. No other solid or cystic lesion. A prominent but benign-appearing left axillary lymph node is redemonstrated. Overall Assessment: Probably benign, BI-RAD 3 Management: Diagnostic Mammogram of both breasts in 6 months. Total one-year follow-up left breast focal asymmetry and annual exam of the right breast. A clinical breast exam by your physician is recommended on an annual basis and results should be correlated with mammographic findings. This exam should not preclude additional follow-up of suspicious palpable abnormalities. Results were given to the patient verbally at the time of exam. Electronically signed and approved by: Destin Whitten M.D. Radiologist
== END | disposition home or self-care (01) ==
LOC: RADUSWWP 10:59
PROVIDERS: ATTEND Family Medicine
DX: N60.02 Solitary cyst of left breast (principal); R92.8 Other abnormal and inconclusive findings on diagnostic imaging of breast; Z78.0 Asymptomatic menopausal state

== ENCOUNTER 2024-02-09 00:07 | Emergency (ER) | payer OTHER ==
--- NOTE | 2024-02-09 00:12 | ED ---
General Adult HPI - General Source: patient, RN notes reviewed <Reinier Page - Last Filed: 02/09/24 00:13> - General Source: RN notes reviewed, old records reviewed Mode of arrival: ambulatory Limitations: no limitations - History of Present Illness -: days(s) Consistency: constant Improves with: none Worsens with: none Associated Symptoms: denies other symptoms <Kobe Monzon - Last Filed: 02/20/24 22:13> - General Stated complaint: Hyperglycemia 585 Time Seen by Provider: 02/09/24 00:07 - History of Present Illness Initial comments: Quick note 58-year-old female presenting to the ED with complaints of high blood sugar. She is a [id number] diabetic. Reports she has run out of her antihyperglycemic's for a while. States that her sugars have been elevated and today noted it was 585. (Reinier Page) This is a 58-year-old female who for Ozempic blood sugar regulation, patient has been out of medications for her blood sugar and blood sugars been running significantly high. And today it was over 500 which she became concerned and comes to the ER. Other complaint (Kobe Monzon) - Related Data Home Medications Medication Instructions Recorded Confirmed Meloxicam 15 mg PO QAM 05/16/15 04/02/23 Sertraline [Zoloft] 100 mg PO QAM 05/16/15 04/02/23 lisinopriL [Lisinopril] 10 mg PO QAM 05/16/15 04/02/23 Atorvastatin [Lipitor] 20 mg PO QAM 07/03/18 04/02/23 Omeprazole 20 mg PO QAM 07/03/18 04/02/23 Dulaglutide [Trulicity] 3 mg SQ MO 04/02/23 04/02/23 Jardiance (Unknown Dose) 1 tab PO QAM 04/02/23 04/02/23 Previous Rx's Medication Instructions Recorded Meclizine [Antivert] 25 mg PO TID PRN #20 tab 09/01/18 Allergies Allergy/AdvReac Type Severity Reaction Status Date / Time cephalexin [From Keflex] Allergy Rash/Hives Verified 02/09/24 00:37 Review of Systems ROS Other: All systems not noted in ROS Statement are negative. <Reinier Page - Last Filed: 02/09/24 00:13> ROS Other: All systems not noted in ROS Statement are negative. <Kobe Monzon - Last Filed: 02/20/24 22:13> ROS Statement: Those systems with pertinent positive or pertinent negative responses have been documented in the HPI. Past Medical History Past Medical History: Diabetes Mellitus, GERD/Reflux, Hyperlipidemia, Hypertension, Osteoarthritis (OA) Additional Past Medical History / Comment(s): IBS. Varicose veins. Optical migraines. History of Any Multi-Drug Resistant Organisms: None Reported Past Surgical History: Section, Cholecystectomy, Joint Replacement, Tubal Ligation Additional Past Surgical History / Comment(s): Pain injections, left thumb joint replacement. Past Anesthesia/Blood Transfusion Reactions: No Reported Reaction Past Psychological History: Depression Smoking Status: Never smoker, Unknown if ever smoked Past Alcohol Use History: None Reported Past Drug Use History: Marijuana Additional Drug Use History / Comment(s): Marijuana use "once in a while." Aware no use 24 hrs prior to procedure. - Past Family History Mother Family Medical History: Myocardial Infarction (HI) Father Additional Family Medical History / Comment(s): DAD AT AGE 63 OF AORTIC ANEURYSM. <Reinier Page - Last Filed: 02/09/24 00:13> General Exam <Reinier Page - Last Filed: 02/09/24 00:13> General appearance: alert, in no apparent distress Head exam: Present: atraumatic, normocephalic, normal inspection Eye exam: Present: normal appearance, PERRL, EOMI. Absent: scleral icterus, conjunctival injection, periorbital swelling ENT exam: Present: normal exam, mucous membranes moist Neck exam: Present: normal inspection. Absent: tenderness, meningismus, lymphadenopathy Respiratory exam: Present: normal lung sounds bilaterally. Absent: respiratory distress, wheezes, rales, rhonchi, stridor Cardiovascular Exam: Present: regular rate, normal rhythm, normal heart sounds. Absent: systolic murmur, diastolic murmur, rubs, gallop, clicks GI/Abdominal exam: Present: soft, normal bowel sounds. Absent: distended, tenderness, guarding, rebound, rigid Extremities exam: Present: normal inspection, full ROM, normal capillary refill. Absent: tenderness, pedal edema, joint swelling, calf tenderness Back exam: Present: normal inspection Neurological exam: Present: alert, oriented X3, CN II-XII intact Psychiatric exam: Present: normal affect, normal mood Skin exam: Present: warm, dry, intact, normal color. Absent: rash <Kobe Monzon - Last Filed: 02/20/24 22:13> - General Exam Comments Initial Comments: Visual Physical Exam Vital signs reviewed General: Well-appearing, nontoxic, no acute distress. Head: Normocephalic, atraumatic Eyes: PERRLA, EOMI ENT: Airway patent Chest: Nonlabored breathing Skin: No visual rash, normal skin tone Neuro: Alert and oriented 3 Musculoskeletal: No gross abnormalities (Reinier Page) Course <Kobe Monzon - Last Filed: 02/20/24 22:13> Vital Signs 02/09/24 02/09/24 00:32 03:37 Temperature 97.9 F Pulse Rate 80 68 Respiratory 18 18 Rate Blood Pressure 160/91 133/88 O2 Sat by Pulse 98 98 Oximetry - Reevaluation(s) Reevaluation #1: 02/09/24 02:16 Medical records reviewed (Kobe Monzon) Reevaluation #2: 02/09/24 02:16 Patient symptoms improved (Kobe Monzon) Reevaluation #3: 02/09/24 02:16 Patient informed of results and questions answered (Kobe Monzon) Reevaluation #4: Was pt. sent in by a medical professional or institution (, PA, FLASHER ADJUSTER, urgent care, hospital, or group home...) When possible be specific @ -no Did you speak to anyone other than the patient for history (EMS, parent, family, police, friend...)? What history was obtained from this source @ -no Did you review nursing and triage notes (agree or disagree)? Why? @ -agree Are old charts reviewed (outside hosp., previous admission, EMS record, old EKG, old radiological studies, urgent care reports/EKG's, group home records)? Report findings @ -yes Differential Diagnosis (chest pain, altered mental status, abdominal pain women, abdominal pain men, vaginal bleeding, weakness, fever, dyspnea, syncope, headache, dizziness, GI bleed, back pain, seizure, CVA, palpatations, mental health, musculoskeletal)? @ -prior EKG interpreted by me (3pts min.). @ -no X-rays interpreted by me (1pt min.). @ -no CT interpreted by me (1pt min.). @ -no U/S interpreted by me (1pt. min.). @ -no What testing was considered but not performed or refused? (CT, X-rays, U/S, labs)? Why? @ -none What meds were considered but not given or refused? Why? @ -none Did you discuss the management of the patient with other professionals (professionals i.e. DrCarolyn, PA, FLASHER ADJUSTER, lab, RT, psych nurse, social media sr strategy manager, appraiser personal property, teacher, railroad police officer, caser shoe parts)? Give summary @ -no Was smoking cessation discussed for >3mins.? @ -no Was critical care preformed (if so, how long)? @ -no Were there social determinants of health that impacted care today? How? (Homelessness, low income, unemployed, alcoholism, drug addiction, transportation, low edu. Level, literacy, decrease access to med. care, assisted, rehab)? @ -none Was there de-escalation of care discussed even if they declined (Discuss DNR or withdrawal of care, Hospice)? DNR status @ -no What co-morbidities impacted this encounter? (DM, HTN, Smoking, COPD, CAD, Cancer, CVA, ARF, Chemo, Hep., AIDS, mental health diagnosis, sleep apnea, morbid obesity)? @ -none Was patient admitted / discharged? Hospital course, mention meds given and route, prescriptions, significant lab abnormalities, going to OR and other pertinent info. @ - 58 female to ER for elevated blood sugar. Patient blood sugar is improved here in the ER adequately hydrated and can be discharged home Undiagnosed new problem with uncertain prognosis? @ -no Drug Therapy requiring intensive monitoring for toxicity (Heparin, Nitro, Insulin, Cardizem)? @ -no Were any procedures done? @ -no Diagnosis/symptom? @ -Hyperglycemia Acute, or Chronic, or Acute on Chronic? @ -Acute Uncomplicated (without systemic symptoms) or Complicated (systemic symptoms)? @ -Complicated Side effects of treatment? @ -no Exacerbation, Progression, or Severe Exacerbation? @ -exacerbation Poses a threat to life or bodily function? How? (Chest pain, USA, HI, pneumonia, PE, COPD, DKA, ARF, appy, cholecystitis, CVA, Diverticulitis, Homicidal, Suicidal, threat to staff... and all critical care pts) @ -yes severely uncontrolled blood sugar (Kobe Monzon) Medical Decision Making <Reinier Page - Last Filed: 02/09/24 00:13> - Lab Data Result diagrams: 02/09/24 00:47 02/09/24 00:47 <Kobe Monzon - Last Filed: 02/20/24 22:13> - Medical Decision Making Quicknote portion performed. Signed Reinier Page PA-C (Reinier Page) 58 female to ER for elevated blood sugar. Patient blood sugar is improved here in the ER adequately hydrated and can be discharged home (Kobe Monzon) - Lab Data Lab Results 02/09/24 02/09/24 02/09/24 Range/Units 00:34 00:47 00:47 WBC 9.2 (3.8-10.6) k/uL RBC 4.89 (3.80-5.40) m/uL Hgb 13.3 (11.4-16.0) gm/dL Hct 43.5 (34.0-46.0) % MCV 88.9 (80.0-100.0) fL MCH 27.2 (25.0-35.0) pg MCHC 30.7 L (31.0-37.0) g/dL RDW 13.3 (11.5-15.5) % Plt Count 231 (150-450) k/uL MPV 8.3 Neutrophils % 59 % Lymphocytes % 31 % Monocytes % 6 % Eosinophils % 2 % Basophils % 1 % Neutrophils # 5.4 (1.3-7.7) k/uL Lymphocytes # 2.9 (1.0-4.8) k/uL Monocytes # 0.5 (0-1.0) k/uL Eosinophils # 0.2 (0-0.7) k/uL Basophils # 0.1 (0-0.2) k/uL Sodium 129 L (137-145) mmol/L Potassium 4.6 (3.5-5.1) mmol/L Chloride 98 (98-107) mmol/L Carbon Dioxide 23 (22-30) mmol/L Anion Gap 8 mmol/L BUN 26 H (7-17) mg/dL Creatinine 0.83 (0.52-1.04) mg/dL Est GFR (CKD-EPI)AfAm >90 (>60 ml/min/1.73 sqM) Est GFR (CKD-EPI)NonAf 78 (>60 ml/min/1.73 sqM) Glucose 531 H* (74-99) mg/dL POC Glucose (mg/dL) 526 H* (70-110) mg/dL POC Glu Telephone Switchboard Operator Jose Vega Calcium 9.1 (8.4-10.2) mg/dL Phosphorus 4.6 H (2.5-4.5) mg/dL Magnesium 2.0 (1.6-2.3) mg/dL Total Bilirubin 0.5 (0.2-1.3) mg/dL AST 29 (14-36) U/L ALT 47 H (4-34) U/L Alkaline Phosphatase 212 H (38-126) U/L Total Protein 6.7 (6.3-8.2) g/dL Albumin 4.1 (3.5-5.0) g/dL Urine Color Urine Appearance (Clear) Urine pH (5.0-8.0) Ur Specific [place] (1.001-1.035) Urine Protein (Negative) Urine Glucose (UA) (Negative) Urine Ketones (Negative) Urine Blood (Negative) Urine Nitrite (Negative) Urine Bilirubin (Negative) Urine Urobilinogen (<2.0) mg/dL Ur Leukocyte Esterase (Negative) Acetone, Qual Negative (Negative) 02/09/24 02/09/24 Range/Units 00:51 03:34 WBC (3.8-10.6) k/uL RBC (3.80-5.40) m/uL Hgb (11.4-16.0) gm/dL Hct (34.0-46.0) % MCV (80.0-100.0) fL MCH (25.0-35.0) pg MCHC (31.0-37.0) g/dL RDW (11.5-15.5) % Plt Count (150-450) k/uL MPV Neutrophils % % Lymphocytes % % Monocytes % % Eosinophils % % Basophils % % Neutrophils # (1.3-7.7) k/uL Lymphocytes # (1.0-4.8) k/uL Monocytes # (0-1.0) k/uL Eosinophils # (0-0.7) k/uL Basophils # (0-0.2) k/uL Sodium (137-145) mmol/L Potassium (3.5-5.1) mmol/L Chloride (98-107) mmol/L Carbon Dioxide (22-30) mmol/L Anion Gap mmol/L BUN (7-17) mg/dL Creatinine (0.52-1.04) mg/dL Est GFR (CKD-EPI)AfAm (>60 ml/min/1.73 sqM) Est GFR (CKD-EPI)NonAf (>60 ml/min/1.73 sqM) Glucose (74-99) mg/dL POC Glucose (mg/dL) 284 H (70-110) mg/dL POC Glu Telephone Switchboard Operator ID Kel Erwin Calcium (8.4-10.2) mg/dL Phosphorus (2.5-4.5) mg/dL Magnesium (1.6-2.3) mg/dL Total Bilirubin (0.2-1.3) mg/dL AST (14-36) U/L ALT (4-34) U/L Alkaline Phosphatase (38-126) U/L Total Protein (6.3-8.2) g/dL Albumin (3.5-5.0) g/dL Urine Color Colorless Urine Appearance Clear (Clear) Urine pH 5.0 (5.0-8.0) Ur Specific [place] 1.022 (1.001-1.035) Urine Protein Negative (Negative) Urine Glucose (UA) 4+ H (Negative) Urine Ketones Negative (Negative) Urine Blood Negative (Negative) Urine Nitrite Negative (Negative) Urine Bilirubin Negative (Negative) Urine Urobilinogen <2.0 (<2.0) mg/dL Ur Leukocyte Esterase Negative (Negative) Acetone, Qual (Negative) Disposition <Reinier Page - Last Filed: 02/09/24 00:13> Is patient prescribed a controlled substance at d/c from ED?: No Time of Disposition: 02:00 <Kobe Monzon - Last Filed: 02/20/24 22:13> Clinical Impression: Hyperglycemia due to diabetes mellitus Disposition: HOME SELF-CARE Condition: Fair Instructions (If sedation given, give patient instructions): Diabetic Hyperglycemia (ED) Referrals: Enrike Aparicio MD [Primary Care Provider] - 1-2 days
[2024-02-09 00:36] LABS: Glucose,Whole Blood 526 mg/dL (70-110)
[2024-02-09 00:37] VITALS: RESP 18
[2024-02-09 00:40] VITALS: TEMP 97.9
[2024-02-09 00:58] LABS: Appearance,Urine Clear (Clear); Bilirubin,Urine Negative (Negative); Blood,Urine Negative (Negative); Color,Urine Colorless; Glucose,Urine (UA) 4+ (Negative); Ketones,Urine Negative (Negative); Leukocyte Esterase,Urine Negative (Negative); Nitrite,Urine Negative (Negative); Protein,Urine Negative (Negative); Specific Gravity,Urine 1.022 (1.001-1.035); Urobilinogen,Urine <2.0 mg/dL (<2.0)
[2024-02-09 01:09] LABS: Basophils # (A) 0.1 k/uL (0-0.2); Basophils % (A) 1 %; Eosinophils # (A) 0.2 k/uL (0-0.7); Eosinophils % (A) 2 %; HCT 43.5 % (34.0-46.0); HGB 13.3 gm/dL (11.4-16.0); Lymphocytes # (A) 2.9 k/uL (1.0-4.8); Lymphocytes % (A) 31 %; MCH 27.2 pg (25.0-35.0); MCHC 30.7 g/dL (31.0-37.0); MCV 88.9 fL (80.0-100.0); Mean Platelet Volume 8.3; Monocytes # (A) 0.5 k/uL (0-1.0); Monocytes % (A) 6 %; Neutrophils # (A) 5.4 k/uL (1.3-7.7); Neutrophils % (A) 59 %; Platelet Count 231 k/uL (150-450); RBC 4.89 m/uL (3.80-5.40); RDW 13.3 % (11.5-15.5); WBC 9.2 k/uL (3.8-10.6)
[2024-02-09 01:19] LABS: ALT 47 U/L (4-34); AST 29 U/L (14-36); African American GFR (CKD) >90 (>60 ml/min/1.73 sqM); Albumin 4.1 g/dL (3.5-5.0); Alkaline Phosphatase 212 U/L (38-126); Anion Gap 8 mmol/L; Blood Urea Nitrogen 26 mg/dL (7-17); Calcium 9.1 mg/dL (8.4-10.2); Carbon Dioxide 23 mmol/L (22-30); Chloride 98 mmol/L (98-107); Non-African American GFR(CKD) 78 (>60 ml/min/1.73 sqM); Phosphorus 4.6 mg/dL (2.5-4.5); Potassium 4.6 mmol/L (3.5-5.1); Sodium 129 mmol/L (137-145); Total Bilirubin 0.5 mg/dL (0.2-1.3); Total Protein 6.7 g/dL (6.3-8.2)
[2024-02-09 02:06] LABS: Glucose 531 mg/dL (74-99)
[2024-02-09] MEDS: SODIUM CHLORIDE 0.9% 2,000 ML IV STA (02:16)
[2024-02-09] MEDS: INSULIN REGULAR 100 UNIT/ML VIAL (IV) IV ONE (02:17)
[2024-02-09] MEDS: INSULIN REGULAR 100 UNIT/ML VIAL (IM/SQ) SQ ONE (02:17)
[2024-02-09] MEDS: SIMETHICONE 80 MG CHEWABLE PO STA (02:21)
[2024-02-09 03:36] LABS: Glucose,Whole Blood 284 mg/dL (70-110)
[2024-02-09 03:42] VITALS: BP 133/88; PULSE 68
== END 2024-02-09 03:43 | disposition home or self-care (01) ==
LOC: EC 00:07
DX: E11.65 Type 2 diabetes mellitus with hyperglycemia (principal); Z88.1 Allergy status to other antibiotic agents
CPT/HCPCS: 36415; 80053; 81003; 82009; 83735; 84100; 85025; 96360; 99284

== ENCOUNTER → 2024-05-06 | Outpatient (CLI) | payer OTHER ==
[2024-05-06 15:23] LABS: % Iron Saturation 16.86 (12.00-45.00); ALT 661 U/L (8-44); AST 388 U/L (13-35); Albumin 3.9 g/dL (3.8-4.9); Albumin/Globulin Ratio 1.39 Ratio (1.60-3.17); Alkaline Phosphatase 267 U/L (41-126); BUN/Creat Ratio 14.25 Ratio (12.00-20.00); Blood Urea Nitrogen 11.4 mg/dL (9.0-27.0); Calcium 9.4 mg/dL (8.7-10.3); Carbon Dioxide 21.7 mmol/L (21.6-31.8); Chloride 103 mmol/L (96-109); Ferritin 43.2 ng/mL (10.0-291.0); Globulin 2.8 g/dL (1.6-3.3); Glucose 223 mg/dL (70-110); Iron 71 UG/DL (50-170); Potassium 4.6 mmol/L (3.5-5.5); Sodium 137 mmol/L (135-145); Total Bilirubin 0.4 mg/dL (0.3-1.2); Total Iron Binding Capacity 421 UG/DL (228-460); Total Protein 6.7 g/dL (6.2-8.2)
[2024-05-06 15:31] LABS: Basophils # (A) 0.04 X 10*3/uL (0.00-0.10); Basophils % (A) 0.6 %; Eosinophils % (A) 2.8 %; HCT 41.6 % (37.2-46.3); HGB 13.6 g/dL (12.0-15.0); Lymphocytes # (A) 1.97 X 10*3/uL (0.90-5.00); Lymphocytes % (A) 27.3 %; MCH 27.8 pg (27.0-32.0); MCHC 32.7 g/dL (32.0-37.0); MCV 85.1 FL (80.0-97.0); Mean Platelet Volume 10.9 FL (9.5-12.2); Monocytes # (A) 0.53 X 10*3/uL (0.20-1.00); Monocytes % (A) 7.4 %; NRBC Per 100 WBC 0 X 10*3/uL (0.00-0.01); Neutrophils # (A) 4.43 X 10*3/uL (1.80-7.70); Neutrophils % (A) 61.3 %; Platelet Count 256 X 10*3/uL (140-440); RBC 4.89 X 10*6/uL (4.10-5.20); RDW 13.3 % (11.5-14.5); WBC 7.21 X 10*3/uL (4.50-10.00)
[2024-05-06 15:40] LABS: Alpha Fetoprotein, Tumor Mkr <3.00 ng/mL (0.00-7.90)
[2024-05-07 11:40] LABS: Protein, Total 6.7 g/dL (6.2-8.2)
[2024-05-07 11:58] LABS: Smooth Muscle Antibody 47 UNITS (<20)
[2024-05-07 19:27] LABS: Albumin 3.48 g/dL (3.80-4.90); Gamma Globulin 1.32 g/dL (0.70-1.50)
== END | disposition home or self-care (01) ==
LOC: LABWHC1 09:39
PROVIDERS: ATTEND Internal Medicine Gastroenterology
DX: R74.01 Elevation of levels of liver transaminase levels (principal)
CPT/HCPCS: 36415; 80053; 81596; 82103; 82105; 82390; 82728; 83516; 83540; 83550; 84165; 85025; 86038

== ENCOUNTER 2024-05-26 03:36 | Emergency (ER) | payer OTHER ==
--- NOTE | 2024-05-26 04:06 | ED ---
General Adult HPI - General Chief complaint: Back Pain/Injury Stated complaint: Lower Back pain Time Seen by Provider: 05/26/24 03:38 Source: patient Mode of arrival: ambulatory - History of Present Illness Initial comments: Dictation was produced using QRca[employer] dictation software. please excuse any grammatical, word or spelling errors. Chief Complaint: 58-year-old female chronic back pain presents to the emergency department with right lower back pain History of Present Illness: Patient is a 58-year-old female she has chronic back pain states that for the last for 5 days she has been having flareup of her back pain. States that it feels slightly different as it is now in her right lower back radiates to her right hip. Denies any hematuria. Fever, chills or night sweats. She has been taking medications prescribed at outside hospital which have not helped her symptoms. Denies any symptoms exacerbated with standing or moving. States that it is a throbbing sensation. No symptoms to the extremities. Denies any saddle anesthesia or loss of bowel bladder The ROS documented in this emergency department record has been reviewed and confirmed by me. Those systems with pertinent positive or negative responses have been documented in the HPI. All other systems are other negative and/or noncontributory. - Related Data Home Medications Medication Instructions Recorded Confirmed Meloxicam 15 mg PO QAM 05/16/15 04/02/23 Sertraline [Zoloft] 100 mg PO QAM 05/16/15 04/02/23 lisinopriL [Lisinopril] 10 mg PO QAM 05/16/15 04/02/23 Atorvastatin [Lipitor] 20 mg PO QAM 07/03/18 04/02/23 Omeprazole 20 mg PO QAM 07/03/18 04/02/23 Dulaglutide [Trulicity] 3 mg SQ MO 04/02/23 04/02/23 Jardiance (Unknown Dose) 1 tab PO QAM 04/02/23 04/02/23 Previous Rx's Medication Instructions Recorded Meclizine [Antivert] 25 mg PO TID PRN #20 tab 09/01/18 Levofloxacin [Levaquin] 750 mg PO DAILY 6 Days #6 tab 05/26/24 Allergies Allergy/AdvReac Type Severity Reaction Status Date / Time cephalexin [From Keflex] Allergy Rash/Hives Verified 05/26/24 03:49 Review of Systems ROS Statement: Those systems with pertinent positive or pertinent negative responses have been documented in the HPI. ROS Other: All systems not noted in ROS Statement are negative. Past Medical History Past Medical History: Diabetes Mellitus, GERD/Reflux, Hyperlipidemia, Hypertension, Osteoarthritis (OA) Additional Past Medical History / Comment(s): IBS. Varicose veins. Optical migraines. History of Any Multi-Drug Resistant Organisms: None Reported Past Surgical History: Section, Cholecystectomy, Joint Replacement, Tubal Ligation Additional Past Surgical History / Comment(s): Pain injections, left thumb joint replacement. Past Anesthesia/Blood Transfusion Reactions: No Reported Reaction Past Psychological History: Depression Smoking Status: Never smoker, Unknown if ever smoked Past Alcohol Use History: None Reported Past Drug Use History: Marijuana - Past Family History Mother Family Medical History: Myocardial Infarction ([place]) Father Additional Family Medical History / Comment(s): DAD AT AGE 63 OF AORTIC ANEURYSM. General Exam - General Exam Comments Initial Comments: General: Well-appearing, nontoxic, no acute distress. Head: Normocephalic, atraumatic Eyes: PERRLA, EOMI ENT: Airway patent Chest: Nonlabored breathing Skin: No visual rash, normal skin tone Neuro: Alert and oriented 3 Musculoskeletal: No gross abnormalities Course Vital Signs 05/26/24 05/26/24 03:45 04:43 Temperature 97.7 F Pulse Rate 94 67 Respiratory 20 20 Rate Blood Pressure 148/85 148/96 O2 Sat by Pulse 98 99 Oximetry Medical Decision Making - Medical Decision Making Was pt. sent in by a medical professional or institution (, PA, MAGNETIC OBSERVER, urgent ca re, hospital, or long term...) When possible be specific @ -No Did you speak to anyone other than the patient for history (EMS, parent, family, police, friend...)? What history was obtained from this source @ -No Did you review nursing and triage notes (agree or disagree)? Why? @ -I reviewed and agree with nursing and triage notes Were old charts reviewed (outside hosp., previous admission, EMS record, old EKG, old radiological studies, urgent care reports/EKG's, long term records)? Report findings @ -No old charts were reviewed Differential Diagnosis (chest pain, altered mental status, abdominal pain women, abdominal pain men, vaginal bleeding, musculoskeletal, weakness, fever, dyspnea, syncope, headache, dizziness, GI bleed, back pain, seizure, CVA, palpatations, mental health)? @ -Differential Back Pain: Strain, zoster, cauda equina syndrome, epidural abscess, vertebral osteomyelitis, discitis, fracture, subluxation, disc herniation, DJD, spinal stenosis, dissection, AAA, pancreatitis, peptic ulcer disease, pyelonephritis, kidney stone, this is not meant to be an all-inclusive list. EKG interpreted by me (3pts min.). @ -None done X-rays interpreted by me (1pt min.). @ -hip X-ray is nonacute CT interpreted by me (1pt min.). @ -CT scan of the ab pelvis shows no acute processes U/S interpreted by me (1pt. min.). @ -None done What testing was considered but not performed or refused? (CT, X-rays, U/S, labs)? Why? @ -None What meds were considered but not given or refused? Why? @ -None Was smoking cessation discussed for >3mins.? @ -No Were there social determinants of health that impacted care today? How? (Homelessness, low income, unemployed, alcoholism, drug addiction, transportation, low edu. Level, literacy, decrease access to med. care, correction, rehab)? @ -No Was there de-escalation of care discussed even if they declined (Discuss DNR or withdrawal of care, Hospice)? DNR status @ -No What co-morbidities impacted this encounter? (DM, HTN, Smoking, COPD, CAD, Cancer, CVA, ARF, Chemo, Hep., AIDS, mental health diagnosis, sleep apnea, morbid obesity)? @ -None Was patient admitted / discharged? Hospital course, mention meds given and route, prescriptions, significant lab abnormalities, going to OR and other pertinent info. @ -50-year-old female presents to the emergency department with back pain. States that her back pain is atypical from her usual back pain. She does have history of chronic back disease. Patient also diabetic has no other multiple abilities. Vital signs upon arrival are within acceptable limits. Laboratory evaluation obtained. Blood labs are negative. Metabolic panel shows 17 white blood cells suspicious for UTI. She does report some flank pain raising suspicion of pyelonephritis. Imaging studies are negative. Patient be discharged to follow-up with primary care doctor. Return precautions discussed. Did you discuss the management of the patient with other professionals (professionals i.e. , PA, MAGNETIC OBSERVER, lab, RT, psych nurse, hospice social worker, pug machine operator, teacher, industrial relations officer, upper caser)? Give summary @ -No Was critical care preformed (if so, how long)? @ -No Undiagnosed new problem with uncertain prognosis? @ -No Drug Therapy requiring intensive monitoring for toxicity (Heparin, Nitro, Ins ulin, Cardizem)? @ -No Were any procedures done? @ -No Diagnosis/symptom? Acute, or Chronic, or Acute on Chronic? Uncomplicated (without systemic symptoms) or Complicated (systemic symptoms)? @ -Pyelonephritis Side effects of treatment? @ -No Exacerbation, Progression, or Severe Exacerbation? @ -No Poses a threat to life or bodily function? How? (Chest pain, [place], [place], pneumonia, PE, COPD, DKA, ARF, appy, cholecystitis, CVA, Diverticulitis, Homicidal, Suicidal, threat to staff... and all critical care pts) @ -yes - Lab Data Result diagrams: 05/26/24 04:09 05/26/24 04:09 Lab Results 05/26/24 05/26/24 05/26/24 Range/Units 04:09 04:09 04:22 WBC 9.0 (3.8-10.6) k/uL RBC 4.70 (3.80-5.40) m/uL Hgb 13.0 (11.4-16.0) gm/dL Hct 39.9 (34.0-46.0) % MCV 84.8 (80.0-100.0) fL MCH 27.6 (25.0-35.0) pg MCHC 32.5 (31.0-37.0) g/dL RDW 13.4 (11.5-15.5) % Plt Count 287 (150-450) k/uL MPV 7.8 Neutrophils % 62 % Lymphocytes % 31 % Monocytes % 4 % Eosinophils % 1 % Basophils % 0 % Neutrophils # 5.6 (1.3-7.7) k/uL Lymphocytes # 2.8 (1.0-4.8) k/uL Monocytes # 0.4 (0-1.0) k/uL Eosinophils # 0.1 (0-0.7) k/uL Basophils # 0.0 (0-0.2) k/uL Sodium 135 L (137-145) mmol/L Potassium 4.1 (3.5-5.1) mmol/L Chloride 106 (98-107) mmol/L Carbon Dioxide 25 (22-30) mmol/L Anion Gap 4 mmol/L BUN 20 H (7-17) mg/dL Creatinine 0.86 (0.52-1.04) mg/dL Est GFR (CKD-EPI)AfAm 87 (>60 ml/min/1.73 sqM) Est GFR (CKD-EPI)NonAf 75 (>60 ml/min/1.73 sqM) Glucose 154 H (74-99) mg/dL Calcium 9.0 (8.4-10.2) mg/dL Urine Color Colorless Urine Appearance Clear (Clear) Urine pH 5.0 (5.0-8.0) Ur Specific [place] 1.019 (1.001-1.035) Urine Protein Negative (Negative) Urine Glucose (UA) 4+ H (Negative) Urine Ketones Negative (Negative) Urine Blood Negative (Negative) Urine Nitrite Negative (Negative) Urine Bilirubin Negative (Negative) Urine Urobilinogen <2.0 (<2.0) mg/dL Ur Leukocyte Esterase Moderate H (Negative) Urine RBC 2 (0-5) /hpf Urine WBC 17 H (0-5) /hpf Ur Squamous Epith Cells 1 (0-4) /hpf Urine Bacteria Rare H (None) /hpf Urine Mucus Rare H (None) /hpf Urine Yeast (Budding) Few H (None) /hpf Disposition Clinical Impression: Pyelonephritis Disposition: HOME SELF-CARE Condition: Fair Instructions (If sedation given, give patient instructions): Kidney Infection (ED) Prescriptions: Levofloxacin [Levaquin] 750 mg PO DAILY 6 Days #6 tab Is patient prescribed a controlled substance at d/c from ED?: No Referrals: Enrike Aparicio MD [Primary Care Provider] - 1-2 days Time of Disposition: 05:22
[2024-05-26 04:20] LABS: Basophils % (A) 0 %; Eosinophils # (A) 0.1 k/uL (0-0.7); Eosinophils % (A) 1 %; HCT 39.9 % (34.0-46.0); Lymphocytes # (A) 2.8 k/uL (1.0-4.8); Lymphocytes % (A) 31 %; MCH 27.6 pg (25.0-35.0); MCHC 32.5 g/dL (31.0-37.0); MCV 84.8 fL (80.0-100.0); Mean Platelet Volume 7.8; Monocytes # (A) 0.4 k/uL (0-1.0); Monocytes % (A) 4 %; Neutrophils # (A) 5.6 k/uL (1.3-7.7); Neutrophils % (A) 62 %; Platelet Count 287 k/uL (150-450); RDW 13.4 % (11.5-15.5)
[2024-05-26 04:33] LABS: African American GFR (CKD) 87 (>60 ml/min/1.73 sqM); Anion Gap 4 mmol/L; Blood Urea Nitrogen 20 mg/dL (7-17); Carbon Dioxide 25 mmol/L (22-30); Chloride 106 mmol/L (98-107); Glucose 154 mg/dL (74-99); Non-African American GFR(CKD) 75 (>60 ml/min/1.73 sqM); Potassium 4.1 mmol/L (3.5-5.1); Sodium 135 mmol/L (137-145)
[2024-05-26 04:45] LABS: Appearance,Urine Clear (Clear); Bacteria,Urine Rare /hpf; Bilirubin,Urine Negative (Negative); Blood,Urine Negative (Negative); Budding Yeast,Urine Few /hpf; Color,Urine Colorless; Glucose,Urine (UA) 4+ (Negative); Ketones,Urine Negative (Negative); Leukocyte Esterase,Urine Moderate (Negative); Mucus,Urine Rare /hpf; Nitrite,Urine Negative (Negative); Protein,Urine Negative (Negative); RBC,Urine 2 /hpf (0-5); Specific Gravity,Urine 1.019 (1.001-1.035); Squamous Epithelial Cell,Urine 1 /hpf (0-4); Urobilinogen,Urine <2.0 mg/dL (<2.0); WBC,Urine 17 /hpf (0-5)
[2024-05-26] MEDS: MORPHINE SULFATE 4 MG/ML SYRINGE IV STA (04:46)
--- NOTE | 2024-05-26 05:04 | XR ---
EXAMINATION TYPE: XR Hip Limited RT DATE OF EXAM: 05/26/2024 CLINICAL HISTORY: Hip pain TECHNIQUE: Single frontal view of the right hip is obtained. COMPARISON: Same day CT FINDINGS: There is no acute displaced fracture evident in the right hip. Mild to moderate axial join t space loss in the right hip. Overlying soft tissues are unremarkable. IMPRESSION: As above. [facility], , 05/26/2024 5:02 AM
--- NOTE | 2024-05-26 05:07 | CT ---
EXAMINATION TYPE: CT abdomen pelvis wo con DATE OF EXAM: 05/26/2024 HISTORY: PT states that she is having severe right lower back pain that radiates into her LRQ. Pt sta jero that she has a bad back and was recently seen for it. Pt denies any history of kidney stones. CT DLP: 1167.3 mGycm. Automated Exposure Control for Dose Reduction was Utilized. TECHNIQUE: CT scan of the abdomen and pelvis is performed without oral or IV contrast. COMPARISON: NONE FINDINGS: Within the limitations of a non-contrast study, the following observations are made. LUNG BASES: Mild left greater than right bibasilar linear scarring and/or atelectasis. LIVER/GB: Cholecystectomy clips are seen. PANCREAS: No significant abnormality is seen. SPLEEN: No significant abnormality is seen. ADRENALS: No significant abnormality is seen. KIDNEYS: No renal stones or hydronephrosis is present bilaterally. No intraluminal calculus in the po ciera distended bladder. BOWEL: A few distal colonic diverticula. No CT evidence for acute diverticulitis. No abnormal small o r large bowel dilatation. GENITAL ORGANS: Anteverted uterus. Symmetric small size ovaries correlates with patient's postmenopau raj age. LYMPH NODES: No greater than 1cm abdominal or pelvic lymph nodes are appreciated. OSSEOUS STRUCTURES: Vacuum disc phenomenon with moderate to severe disc space narrowing at the lumbos acral junction. OTHER: No significant additional abnormality is seen. IMPRESSION: No renal stones or hydronephrosis is seen bilaterally. No acute findings seen to account for patient's symptoms. [facility], , 05/26/2024 5:05 AM
[2024-05-26] MEDS: LEVOFLOXACIN 750 MG TAB PO STA (05:24)
[2024-05-26] MEDS: ACET/COD 300 MG/30 MG STARTER PACK 6 TAB BTL PO STA (05:28)
[2024-05-26 05:40] VITALS: BP 152/87; PULSE 69; RESP 19; TEMP 97.5
== END 2024-05-26 05:48 | disposition home or self-care (01) ==
LOC: EC 03:36
CPT/HCPCS: 36415; 73501; 74176; 80048; 81001; 85025; 87086; 96374; 99284

== ENCOUNTER 2024-05-26 17:13 | Observation (INO) | payer OTHER ==
[2024-05-26] MEDS: SODIUM CHLORIDE 0.9% 1,000 ML IV ONE (17:53)
[2024-05-26] MEDS: HYDROmorphone 0.5 MG/0.5 ML SYRINGE IVP STA (17:56)
[2024-05-26 18:01] LABS: Basophils % (A) 1 %; Eosinophils % (A) 0 %; HCT 40.5 % (34.0-46.0); HGB 12.8 gm/dL (11.4-16.0); Hypochromasia Slight; Lymphocytes # (A) 0.6 k/uL (1.0-4.8); Lymphocytes % (A) 9 %; MCH 27.7 pg (25.0-35.0); MCHC 31.7 g/dL (31.0-37.0); MCV 87.6 fL (80.0-100.0); Mean Platelet Volume 7.6; Monocytes # (A) 0.1 k/uL (0-1.0); Monocytes % (A) 2 %; Neutrophils # (A) 5.4 k/uL (1.3-7.7); Neutrophils % (A) 88 %; Platelet Count 266 k/uL (150-450); RBC 4.63 m/uL (3.80-5.40); RDW 13.3 % (11.5-15.5); WBC 6.2 k/uL (3.8-10.6)
[2024-05-26 18:09] LABS: Appearance,Urine Clear (Clear); Bilirubin,Urine Negative (Negative); Blood,Urine Negative (Negative); Color,Urine Colorless; Glucose,Urine (UA) 4+ (Negative); Ketones,Urine Negative (Negative); Leukocyte Esterase,Urine Negative (Negative); Nitrite,Urine Negative (Negative); PH, Urine 5.5 (5.0-8.0); Protein,Urine Negative (Negative); Specific Gravity,Urine 1.015 (1.001-1.035); Urobilinogen,Urine <2.0 mg/dL (<2.0)
[2024-05-26 18:12] LABS: ALT 59 U/L (4-34); AST 33 U/L (14-36); African American GFR (CKD) 82 (>60 ml/min/1.73 sqM); Albumin 3.7 g/dL (3.5-5.0); Alkaline Phosphatase 164 U/L (38-126); Anion Gap 7 mmol/L; Blood Urea Nitrogen 23 mg/dL (7-17); Calcium 9.1 mg/dL (8.4-10.2); Carbon Dioxide 21 mmol/L (22-30); Chloride 106 mmol/L (98-107); Glucose 445 mg/dL (74-99); Magnesium 1.9 mg/dL (1.6-2.3); Non-African American GFR(CKD) 71 (>60 ml/min/1.73 sqM); Potassium 4.8 mmol/L (3.5-5.1); Sodium 134 mmol/L (137-145); Total Bilirubin 0.3 mg/dL (0.2-1.3); Total Protein 6.6 g/dL (6.3-8.2)
--- NOTE | 2024-05-26 18:38 | ED ---
General Adult HPI - General Chief complaint: Urogenital Stated complaint: abd pain Time Seen by Provider: 05/26/24 17:21 Source: patient, RN notes reviewed, old records reviewed Mode of arrival: wheelchair Limitations: no limitations - History of Present Illness Initial comments: 58-year-old female presenting for evaluation of persistent right flank pain. Patient was diagnosed with urinary tract infection and possible pyelonephritis early this morning. She was discharged home with return parameters. She states she has persistent flank pain and frequent urination. No fever. She has had nausea and vomiting. Was started on antibiotics at the time of discharge. - Related Data Home Medications Medication Instructions Recorded Confirmed Meloxicam 15 mg PO QAM 05/16/15 04/02/23 Sertraline [Zoloft] 100 mg PO QAM 05/16/15 04/02/23 lisinopriL [Lisinopril] 10 mg PO QAM 05/16/15 04/02/23 Atorvastatin [Lipitor] 20 mg PO QAM 07/03/18 04/02/23 Omeprazole 20 mg PO QAM 07/03/18 04/02/23 Dulaglutide [Trulicity] 3 mg SQ MO 04/02/23 04/02/23 Jardiance (Unknown Dose) 1 tab PO QAM 04/02/23 04/02/23 Previous Rx's Medication Instructions Recorded Meclizine [Antivert] 25 mg PO TID PRN #20 tab 09/01/18 Levofloxacin [Levaquin] 750 mg PO DAILY 6 Days #6 tab 05/26/24 Allergies Allergy/AdvReac Type Severity Reaction Status Date / Time cephalexin [From Keflex] Allergy Rash/Hives Verified 05/26/24 17:24 Review of Systems ROS Statement: Those systems with pertinent positive or pertinent negative responses have been documented in the HPI. ROS Other: All systems not noted in ROS Statement are negative. Past Medical History Past Medical History: Diabetes Mellitus, GERD/Reflux, Hyperlipidemia, Hypertension, Osteoarthritis (OA) Additional Past Medical History / Comment(s): IBS. Varicose veins. Optical migraines. History of Any Multi-Drug Resistant Organisms: None Reported Past Surgical History: Section, Cholecystectomy, Joint Replacement, Tubal Ligation Additional Past Surgical History / Comment(s): Pain injections, left thumb joint replacement. Past Anesthesia/Blood Transfusion Reactions: No Reported Reaction Past Psychological History: Depression Smoking Status: Never smoker, Unknown if ever smoked Past Alcohol Use History: None Reported Past Drug Use History: Marijuana - Past Family History Mother Family Medical History: Myocardial Infarction ([place]) Father Additional Family Medical History / Comment(s): DAD AT AGE 63 OF AORTIC ANEURYSM. General Exam Limitations: no limitations General appearance: alert, in no apparent distress Head exam: Present: atraumatic, normocephalic Eye exam: Present: normal appearance, PERRL Neck exam: Present: normal inspection. Absent: tenderness Respiratory exam: Present: normal lung sounds bilaterally. Absent: respiratory distress, wheezes Cardiovascular Exam: Present: regular rate, normal rhythm GI/Abdominal exam: Present: soft. Absent: distended, tenderness Back exam: Present: CVA tenderness (R) Neurological exam: Present: alert, oriented X3 Psychiatric exam: Present: anxious Skin exam: Present: warm, dry, intact Course Vital Signs 05/26/24 05/26/24 17:22 18:00 Temperature 97.9 F 97.1 F L Pulse Rate 77 79 Respiratory 18 18 Rate Blood Pressure 136/79 136/88 O2 Sat by Pulse 95 96 Oximetry Medical Decision Making - Medical Decision Making Was pt. sent in by a medical professional or institution (, PA, RETAIL EVENT COORDINATOR, urgent care, hospital, or long-term...) When possible be specific @ -No Did you speak to anyone other than the patient for history (EMS, parent, family, police, friend...)? What history was obtained from this source @ -No Did you review nursing and triage notes (agree or disagree)? Why? @ -I reviewed and agree with nursing and triage notes Were old charts reviewed (outside hosp., previous admission, EMS record, old EKG, old radiological studies, urgent care reports/EKG's, long-term records)? Report findings @ -No old charts were reviewed Differential Abdominal Pain Women: Appendicitis, Cholecystitis, diverticulosis, ischemic bowel, pancreatitis, hepatitis, UTI, gastroenteritis, AAA, incarcerated hernia, bowel obstruction, constipation, inflammatory bowel, hepatitis, peptic ulcer disease, splenic infarction, perforated viscus, vulvitis, ovarian torsion, PID, kidney stone, placenta abruption, this is not meant to be an all-inclusive list EKG interpreted by me (3pts min.). @ -As above X-rays interpreted by me (1pt min.). @ -None done CT interpreted by me (1pt min.). @ -CT of the abdomen pelvis from earlier today was reviewed I do not see obstructing stone, there may be some mild right-sided perinephric fat stranding. U/S interpreted by me (1pt. min.). @ -None done What testing was considered but not performed or refused? (CT, X-rays, U/S, labs)? Why? @ -None What meds were considered but not given or refused? Why? @ -None Did you discuss the management of the patient with other professionals (professionals i.e. DrCarolyn, PA, RETAIL EVENT COORDINATOR, lab, RT, psych nurse, social work program coordinator, ferris wheel operator, teacher, fisheries technical officer, porter sample case)? Give summary @Dr. Aparicio Was smoking cessation discussed for >3mins.? @ -No Was critical care preformed (if so, how long)? @ -No Were there social determinants of health that impacted care today? How? (Homelessness, low income, unemployed, alcoholism, drug addiction, transportation, low edu. Level, literacy, decrease access to med. care, custodial, rehab)? @ -No Was there de-escalation of care discussed even if they declined (Discuss DNR or withdrawal of care, Hospice)? DNR status @ -No What co-morbidities impacted this encounter? (DM, HTN, Smoking, COPD, CAD, Cancer, CVA, ARF, Chemo, Hep., AIDS, mental health diagnosis, sleep apnea, morbid obesity)? @ -[Diabetic Was patient admitted / discharged? Hospital course, mention meds given and route, prescriptions, significant lab abnormalities, going to OR and other pertinent info. @ -58-year-old female presenting with persistent right flank pain. Patient received laboratory testing, urinalysis, CT imaging earlier today. Her symptoms are persistent. Patient has a normal white blood cell count, normal hemoglobin, normal electrolytes, blood sugar is significantly elevated at 450 she has a mild lactic acidosis. Urinalysis has cleared showing only glucose, no ketones, no signs of current infection. Patient remains symptomatic she will be observed for hydration, symptom control. Case discussed with Dr. Aparicio who will admit. Undiagnosed new problem with uncertain prognosis? @ -[No Drug Therapy requiring intensive monitoring for toxicity (Heparin, Nitro, Insulin, Cardizem)? @ -No Were any procedures done? @ -No Diagnosis/symptom? @ -dehydration, flank pain, hyperglycemia Acute, or Chronic, or Acute on Chronic? @ -acute Uncomplicated (without systemic symptoms) or Complicated (systemic symptoms)? @ -Default Side effects of treatment? @ -No Exacerbation, Progression, or Severe Exacerbation? @ -No Poses a threat to life or bodily function? How? (Chest pain, [place], [place], pneumonia, PE, COPD, DKA, ARF, appy, cholecystitis, CVA, Diverticulitis, Homicidal, Sneha cidal, threat to staff... and all critical care pts) @ -Low risk - Lab Data Result diagrams: 05/26/24 17:43 05/26/24 17:43 Lab Results 05/26/24 05/26/24 05/26/24 Range/Units 17:43 17:43 17:43 WBC 6.2 (3.8-10.6) k/uL RBC 4.63 (3.80-5.40) m/uL Hgb 12.8 (11.4-16.0) gm/dL Hct 40.5 (34.0-46.0) % MCV 87.6 (80.0-100.0) fL MCH 27.7 (25.0-35.0) pg MCHC 31.7 (31.0-37.0) g/dL RDW 13.3 (11.5-15.5) % Plt Count 266 (150-450) k/uL MPV 7.6 Neutrophils % 88 % Lymphocytes % 9 % Monocytes % 2 % Eosinophils % 0 % Basophils % 1 % Neutrophils # 5.4 (1.3-7.7) k/uL Lymphocytes # 0.6 L (1.0-4.8) k/uL Monocytes # 0.1 (0-1.0) k/uL Eosinophils # 0.0 (0-0.7) k/uL Basophils # 0.0 (0-0.2) k/uL Hypochromasia Slight Sodium 134 L (137-145) mmol/L Potassium 4.8 (3.5-5.1) mmol/L Chloride 106 (98-107) mmol/L Carbon Dioxide 21 L (22-30) mmol/L Anion Gap 7 mmol/L BUN 23 H (7-17) mg/dL Creatinine 0.90 (0.52-1.04) mg/dL Est GFR (CKD-EPI)AfAm 82 (>60 ml/min/1.73 sqM) Est GFR (CKD-EPI)NonAf 71 (>60 ml/min/1.73 sqM) Glucose 445 H (74-99) mg/dL Plasma Lactic Acid Jad (0.7-2.0) mmol/L Calcium 9.1 (8.4-10.2) mg/dL Magnesium 1.9 (1.6-2.3) mg/dL Total Bilirubin 0.3 (0.2-1.3) mg/dL AST 33 (14-36) U/L ALT 59 H (4-34) U/L Alkaline Phosphatase 164 H (38-126) U/L Total Protein 6.6 (6.3-8.2) g/dL Albumin 3.7 (3.5-5.0) g/dL Urine Color Colorless Urine Appearance Clear (Clear) Urine pH 5.5 (5.0-8.0) Ur Specific [place] 1.015 (1.001-1.035) Urine Protein Negative (Negative) Urine Glucose (UA) 4+ H (Negative) Urine Ketones Negative (Negative) Urine Blood Negative (Negative) Urine Nitrite Negative (Negative) Urine Bilirubin Negative (Negative) Urine Urobilinogen <2.0 (<2.0) mg/dL Ur Leukocyte Esterase Negative (Negative) 05/26/24 Range/Units 17:43 WBC (3.8-10.6) k/uL RBC (3.80-5.40) m/uL Hgb (11.4-16.0) gm/dL Hct (34.0-46.0) % MCV (80.0-100.0) fL MCH (25.0-35.0) pg MCHC (31.0-37.0) g/dL RDW (11.5-15.5) % Plt Count (150-450) k/uL MPV Neutrophils % % Lymphocytes % % Monocytes % % Eosinophils % % Basophils % % Neutrophils # (1.3-7.7) k/uL Lymphocytes # (1.0-4.8) k/uL Monocytes # (0-1.0) k/uL Eosinophils # (0-0.7) k/uL Basophils # (0-0.2) k/uL Hypochromasia Sodium (137-145) mmol/L Potassium (3.5-5.1) mmol/L Chloride (98-107) mmol/L Carbon Dioxide (22-30) mmol/L Anion Gap mmol/L BUN (7-17) mg/dL Creatinine (0.52-1.04) mg/dL Est GFR (CKD-EPI)AfAm (>60 ml/min/1.73 sqM) Est GFR (CKD-EPI)NonAf (>60 ml/min/1.73 sqM) Glucose (74-99) mg/dL Plasma Lactic Acid Jad 2.9 H* (0.7-2.0) mmol/L Calcium (8.4-10.2) mg/dL Magnesium (1.6-2.3) mg/dL Total Bilirubin (0.2-1.3) mg/dL AST (14-36) U/L ALT (4-34) U/L Alkaline Phosphatase (38-126) U/L Total Protein (6.3-8.2) g/dL Albumin (3.5-5.0) g/dL Urine Color Urine Appearance (Clear) Urine pH (5.0-8.0) Ur Specific [place] (1.001-1.035) Urine Protein (Negative) Urine Glucose (UA) (Negative) Urine Ketones (Negative) Urine Blood (Negative) Urine Nitrite (Negative) Urine Bilirubin (Negative) Urine Urobilinogen (<2.0) mg/dL Ur Leukocyte Esterase (Negative) Disposition Clinical Impression: Flank pain, Dehydration, Hyperglycemia Disposition: ADMITTED IP TO THIS HOSP Condition: Stable Is patient prescribed a controlled substance at d/c from ED?: No Referrals: Enrike Aparicio MD [Primary Care Provider] - 1-2 days Time of Disposition: 19:19
[2024-05-26] MEDS: SODIUM CHLORIDE 0.9% 500 ML 500 ML IV ONE (18:42)
[2024-05-26] MEDS ORDERED: NALOXONE 0.4 MG/ML 1 ML VIAL IV PRN (19:16)
[2024-05-26 19:24] LABS: Glucose,Whole Blood 292 mg/dL (70-110)
[2024-05-26] MEDS: HYDROmorphone 0.5 MG/0.5 ML SYRINGE IVP PRN (21:51)
[2024-05-26] MEDS: INSULIN REGULAR 100 UNIT/ML VIAL (IV) IV ONE (21:51)
[2024-05-26] MEDS: SODIUM CHLORIDE 0.9% 1,000 ML IV SCH (21:54)
[2024-05-26 22:23] LABS: Glucose,Whole Blood 160 mg/dL (70-110)
[2024-05-27 05:58] LABS: Glucose,Whole Blood 131 mg/dL (70-110)
[2024-05-27 11:23] LABS: Glucose,Whole Blood 144 mg/dL (70-110)
[2024-05-27 16:19] LABS: Glucose,Whole Blood 159 mg/dL (70-110)
[2024-05-27] MEDS: ACETAMINOPHEN TAB 325 MG TAB PO PRN (19:37)
[2024-05-27] MEDS: INSULIN DETEMIR (LEVEMIR) 100 UNIT/ML SYR SQ SCH (20:03)
[2024-05-27] MEDS: CYCLOBENZAPRINE 10 MG TAB PO SCH (20:03)
[2024-05-27 20:13] LABS: Glucose,Whole Blood 224 mg/dL (70-110)
[2024-05-28 06:11] LABS: Glucose,Whole Blood 133 mg/dL (70-110)
[2024-05-28] MEDS: SERTRALINE 100 MG TAB PO SCH (08:28)
[2024-05-28] MEDS: DAPAGLIFLOZIN PROPANEDIOL 10 MG TABLET PO SCH (08:28)
[2024-05-28] MEDS: PANTOPRAZOLE 40 MG TABLET PO SCH (08:28)
[2024-05-28] MEDS: MELOXICAM 7.5 MG TAB PO SCH (08:28)
[2024-05-28] MEDS: lisinopriL 20 MG TAB PO SCH (08:28)
[2024-05-28] MEDS: PATIENT'S OWN (Semaglutide [Ozempic] 0.25 MG/0.368 ML Pen.Injctr) SQ SCH (10:47)
[2024-05-28] MEDS: ONDANSETRON 4 MG/2 ML VIAL IVP PRN (10:54)
[2024-05-28 11:12] LABS: Glucose,Whole Blood 147 mg/dL (70-110)
[2024-05-28] MEDS: LEVOFLOXACIN 750 MG TAB PO SCH (11:58)
[2024-05-28 12:37] VITALS: BMI 38.6
[2024-05-28 13:13] VITALS: BP 134/79; PULSE 93; RESP 18; TEMP 98.1
[2024-05-28] MEDS ORDERED: valACYclovir HCL 1,000 MG TABLET PO SCH (21:00)
--- NOTE | 2024-05-29 00:53 | DS ---
DISCHARGE SUMMARY CHIEF COMPLAINT: Right flank pain. HISTORY OF PRESENT ILLNESS AND PHYSICAL EXAM: Details of this lady's history and physical can be found in the initial workup. LABORATORY STUDIES: While she was in the hospital, she had laboratory studies, details of which can be found in the laboratory section of her chart. COURSE IN THE HOSPITAL: After admission, she was placed on bedrest, started on intravenous fluids and started on workup for the right low back and right abdominal pain. Studies were essentially negative. She seemed to be doing well and then she developed a patchy erythematous macular and vesicular rash in the right buttock area going around in the groin. It was felt that this was herpes zoster and probably the etiology of her pain. She was doing well and anxious to be discharged and she will be sent home on her usual activity, diet, medication along with Valtrex and she will be followed up in the office in several days. FINAL DIAGNOSES: 1. Right low back and right abdominal pain. 2. Herpes zoster. 3. Hypertension. 4. Diabetes. OPERATIONS: None. CONSULTATIONS: None. She is improved. AUTUMN / RAJEEV: [id number] /
--- NOTE | 2024-05-29 02:17 | PN ---
PROGRESS NOTE DATE OF SERVICE: 05/27/2024 CHIEF COMPLAINT: Right low back and right abdominal pain. HISTORY OF PRESENT ILLNESS: This lady is still having some discomfort in the right low back area. She has had no nausea, vomiting. She has had no fever or chills. REVIEW OF SYSTEMS: Otherwise normal. LABORATORY DATA: Laboratory studies include a blood sugar initially 445 and 292, and now it is down to 131. PHYSICAL EXAMINATION: VITAL SIGNS: Blood pressure is 167/94. HEAD, EARS, EYES, NOSE, MOUTH, AND THROAT: Normal. CHEST: Clear. CARDIAC: Normal. ABDOMEN: Soft and nontender. Right flank is nontender. IMPRESSION: 1. Right flank and abdominal pain, etiology unknown. 2. Type 2 diabetes. 3. Hypertension. PLAN: Continue to monitor her abdominal pain while increasing her activity. MMODL / IJN: [id number] /
--- NOTE | 2024-06-03 22:53 | HP ---
HISTORY AND PHYSICAL CHIEF COMPLAINT: Right low back and right-sided abdominal pain. HISTORY OF PRESENT ILLNESS: This is another admission for this lady, who presented to the emergency room with above- mentioned pain. She had no fever, chills, hematuria, dysuria, nausea, vomiting, diarrhea, etc. REVIEW OF SYSTEMS: Otherwise unremarkable. Past medical history, family history, personal and social histories were otherwise noncontributory. PHYSICAL EXAMINATION: VITAL SIGNS: Normal. HEAD, EARS, EYES, NOSE, MOUTH, AND THROAT: Normal. CHEST: Clear. CARDIAC: Normal. ABDOMEN: Soft and nontender without any masses or visceromegaly. She did not have any tenderness in the right low back area or flank area. EXTREMITIES: Normal. NEUROLOGICAL: She is intact. IMPRESSION: Right low back, flank, and right-sided abdominal pain. PLAN: 1. Bedrest. 2. IV fluids. 3. CT of the abdomen and pelvis. 4. Appropriate laboratory studies. MMODL / IJN: [id number] /
== END 2024-05-28 16:07 | disposition home or self-care (01) ==
LOC: EC 17:13 → 4SSUR 19:16
PROVIDERS: ADMIT Family Medicine; ATTEND Family Medicine
DX: R10.9 Unspecified abdominal pain (principal); M54.59 Other low back pain; B02.9 Zoster without complications; I10 Essential (primary) hypertension; E11.65 Type 2 diabetes mellitus with hyperglycemia; E86.0 Dehydration; E78.5 Hyperlipidemia, unspecified; N39.0 Urinary tract infection, site not specified; Z82.49 Family history of ischemic heart disease and other diseases of the circulatory system
CPT/HCPCS: 96376 ×3; 96361 ×2; 96375; 96374; 99284; 36415; 80053; 83605; 83735; 85025; 81003; 83036; G0378 ×3; J2405; J1171 ×3

== ENCOUNTER 2024-06-06 02:26 | Emergency (ER) | payer OTHER ==
[2024-06-06 02:30] VITALS: BP 202/76; PULSE 68; RESP 18; TEMP 98
--- NOTE | 2024-06-06 02:44 | ED ---
General Adult HPI - General Chief complaint: Skin/Abscess/Foreign Body Stated complaint: Pain Time Seen by Provider: 06/06/24 02:41 Source: patient Mode of arrival: ambulatory Limitations: no limitations - History of Present Illness Initial comments: 59-year-old female presenting with a chief complaint of pain from her shingles. Patient was diagnosed with shingles on Friday. Affecting the right side of her body, following the dermatomes along the lower back and hip. She was given Pill[place] and gabapentin by her PCP which she states significantly helped but now she is out. She is currently on Valtrex. She has no other complaints. - Related Data Home Medications Medication Instructions Recorded Confirmed Meloxicam 15 mg PO DAILY 05/16/15 05/26/24 Sertraline [Zoloft] 100 mg PO DAILY 05/16/15 05/26/24 Cholecalciferol (Vitamin D3) 1,250 mcg PO Q30D 05/26/24 05/26/24 [Vitamin D3 (1250 Mcg = 50,000 Iu)] Dicyclomine [Bentyl] 20 mg PO QID PRN 05/26/24 05/26/24 Empagliflozin [Jardiance] 25 mg PO DAILY 05/26/24 05/26/24 Esomeprazole Magnesium [NexIUM] 40 mg PO DAILY 05/26/24 05/26/24 Insulin Glargine,Hum.rec.anlog 12 units SQ HS 05/26/24 05/26/24 [Lantus Solostar Pen] Orphenadrine [Norflex] 100 mg PO BID 05/26/24 05/26/24 Semaglutide [Ozempic] 0.5 mg SQ FR 05/26/24 05/26/24 lisinopriL [Prinivil] 20 mg PO DAILY 05/26/24 05/26/24 Previous Rx's Medication Instructions Recorded Levofloxacin [Levaquin] 750 mg PO DAILY 6 Days #6 tab 05/26/24 Gabapentin 300 mg PO TID 3 Days #9 cap 06/06/24 HYDROcodone/APAP 5-325MG [[place] 1 tab PO Q6HR PRN 3 Days #12 tab 06/06/24 5-325] Allergies Allergy/AdvReac Type Severity Reaction Status Date / Time cephalexin [From Keflex] Allergy Rash/Hives Verified 06/06/24 02:30 Review of Systems ROS Statement: Those systems with pertinent positive or pertinent negative responses have been documented in the HPI. ROS Other: All systems not noted in ROS Statement are negative. Past Medical History Past Medical History: Diabetes Mellitus, GERD/Reflux, Hyperlipidemia, Hypertension, Osteoarthritis (OA) Additional Past Medical History / Comment(s): IBS. Varicose veins. Optical migraines. History of Any Multi-Drug Resistant Organisms: None Reported Past Surgical History: Section, Cholecystectomy, Joint Replacement, Tubal Ligation Additional Past Surgical History / Comment(s): Pain injections, left thumb joint replacement. Past Anesthesia/Blood Transfusion Reactions: No Reported Reaction Past Psychological History: Depression Smoking Status: Never smoker, Unknown if ever smoked Past Alcohol Use History: None Reported Past Drug Use History: Marijuana - Past Family History Mother Family Medical History: Myocardial Infarction (ID) Father Additional Family Medical History / Comment(s): DAD AT AGE 63 OF AORTIC ANEURYSM. General Exam Limitations: no limitations General appearance: alert, in no apparent distress Head exam: Present: atraumatic, normocephalic, normal inspection Eye exam: Present: normal appearance, EOMI Neck exam: Present: normal inspection. Absent: meningismus Respiratory exam: Absent: respiratory distress Cardiovascular Exam: Present: regular rate Neurological exam: Present: alert, oriented X3 Psychiatric exam: Present: normal affect, normal mood Skin exam: Present: other (It appears the majority of the vesicles have since crusted over) Course Vital Signs 06/06/24 02:28 Temperature 98 F Pulse Rate 68 Respiratory 18 Rate Blood Pressure 202/76 O2 Sat by Pulse 97 Oximetry Medical Decision Making - Medical Decision Making Was pt. sent in by a medical professional or institution (, PA, WORKFORCE MANAGEMENT ANALYST, urgent care, hospital, or senior living...) When possible be specific @ -No Did you speak to anyone other than the patient for history (EMS, parent, family, police, friend...)? What history was obtained from this source @ -No Did you review nursing and triage notes (agree or disagree)? Why? @ -I reviewed and agree with nursing and triage notes Were old charts reviewed (outside hosp., previous admission, EMS record, old E KG, old radiological studies, urgent care reports/EKG's, senior living records)? Report findings @ -No old charts were reviewed Differential Diagnosis (chest pain, altered mental status, abdominal pain women, abdominal pain men, vaginal bleeding, weakness, fever, dyspnea, syncope, headache, dizziness, GI bleed, back pain, seizure, CVA, palpatations, mental health, musculoskeletal)? @ -Not applicable EKG interpreted by me (3pts min.). @ -As above X-rays interpreted by me (1pt min.). @ -None done CT interpreted by me (1pt min.). @ -None done U/S interpreted by me (1pt. min.). @ -None done What testing was considered but not performed or refused? (CT, X-rays, U/S, labs)? Why? @ -None What meds were considered but not given or refused? Why? @ -None Did you discuss the management of the patient with other professionals (professionals i.e. , PA, WORKFORCE MANAGEMENT ANALYST, lab, RT, psych nurse, social work specialist, demand equipment repairer, teacher, motorcycle police officer, block and case maker)? Give summary @ -No Was smoking cessation discussed for >3mins.? @ -No Was critical care preformed (if so, how long)? @ -No Were there social determinants of health that impacted care today? How? (Homelessness, low income, unemployed, alcoholism, drug addiction, transportation, low edu. Level, literacy, decrease access to med. care, halfway, rehab)? @ -No Was there de-escalation of care discussed even if they declined (Discuss DNR or withdrawal of care, Hospice)? DNR status @ -No What co-morbidities impacted this encounter? (DM, HTN, Smoking, COPD, CAD, Cancer, CVA, ARF, Chemo, Hep., AIDS, mental health diagnosis, sleep apnea, morbid obesity)? @ -None Was patient admitted / discharged? Hospital course, mention meds given and route, prescriptions, significant lab abnormalities, going to OR and other pertinent info. @ -59-year-old female presenting with chief complaint of shingles pain. She ran out of her pain medication. On exam patient has shingles affecting her lower back and hip on the right side. She is currently on Valtrex. She is provided with a refill of gabapentin and Pillager. Discharged. Follow-up with PCP. Report back to ER with any new or worsening symptoms. Discussed return parameters and answered all questions. Patient conveyed verbal understanding and agreed to the plan. I discussed this case in detail with my attending Dr. Cosby Undiagnosed new problem with uncertain prognosis? @ -No Drug Therapy requiring intensive monitoring for toxicity (Heparin, Nitro, Insulin, Cardizem)? @ -No Were any procedures done? @ -No Diagnosis/symptom? @ -Shingles Acute, or Chronic, or Acute on Chronic? @ -Acute Uncomplicated (without systemic symptoms) or Complicated (systemic symptoms)? @ -Uncomplicated Side effects of treatment? @ -No Exacerbation, Progression, or Severe Exacerbation? @ -No Poses a threat to life or bodily function? How? (Chest pain, [place], ID, pneumonia, PE, COPD, DKA, ARF, appy, cholecystitis, CVA, Diverticulitis, Homicidal, Suicidal, threat to staff... and all critical care pts) @ -No immediate threat Disposition Clinical Impression: Shingles Disposition: HOME SELF-CARE Condition: Good Instructions (If sedation given, give patient instructions): Yovani (ED) Additional Instructions: Follow-up with your PCP. Report back to ER with any new or worsening symptoms. Take medication as prescribed. Prescriptions: Gabapentin 300 mg PO TID 3 Days #9 cap HYDROcodone/APAP 5-325MG [[place] 5-325] 1 tab PO Q6HR PRN 3 Days #12 tab PRN Reason: Pain Is patient prescribed a controlled substance at d/c from ED?: Yes When asked, does pt state using other controlled substances?: No If prescribed controlled substance>3 days was MAPS reviewed?: Prescribed <3 Days If opioid is for acute pain is fill amount 7 days or less?: Yes Referrals: Enrike Aparicio MD [Primary Care Provider] - 1-2 days Time of Disposition: 02:44
[2024-06-06] MEDS: GABAPENTIN 300 MG CAP PO STA (02:57)
[2024-06-06] MEDS: HYDROcodone/APAP 5-325MG 1 EACH TAB PO STA (02:57)
== END 2024-06-06 03:00 | disposition home or self-care (01) ==
LOC: EC 02:26
CPT/HCPCS: 99282

== ENCOUNTER 2024-06-06 09:00 | Emergency (ER) | payer OTHER ==
[2024-06-06 09:11] VITALS: RESP 18; TEMP 98
--- NOTE | 2024-06-06 09:42 | ED ---
Recheck HPI - General Chief Complaint: Recheck/Abnormal Lab/Rx Stated Complaint: lower abd pain-shingles Time Seen by Provider: 06/06/24 09:18 Source: patient, RN notes reviewed Mode of arrival: ambulatory Limitations: no limitations - History of Present Illness Initial Comments: 59-year-old female presents emerged part chief complaint of right-sided abd ominal pain that has been persistent over the past approximately week and a half. Patient states that she was admitted to the hospital for approximately 2 days was discharged on 05/28/2024 with shingles and was prescribed antivirals and steroids. States that she has completed these medications however still experiencing pain. Patient was evaluated emergency department yesterday where she was prescribed [place] and gabapentin with minimal relief. She is concerned that there is a intra-abdominal process rather than the shingles causing pain as the medications are not working for her. She denies nausea, vomiting, fevers, chills, urinary symptoms, diarrhea or constipation. She denies chest pain, shortness of breath, heart palpitations, dizziness or lightheadedness. - Related Data Home Medications Medication Instructions Recorded Confirmed Meloxicam 15 mg PO DAILY 05/16/15 05/26/24 Sertraline [Zoloft] 100 mg PO DAILY 05/16/15 05/26/24 Cholecalciferol (Vitamin D3) 1,250 mcg PO Q30D 05/26/24 05/26/24 [Vitamin D3 (1250 Mcg = 50,000 Iu)] Dicyclomine [Bentyl] 20 mg PO QID PRN 05/26/24 05/26/24 Empagliflozin [Jardiance] 25 mg PO DAILY 05/26/24 05/26/24 Esomeprazole Magnesium [NexIUM] 40 mg PO DAILY 05/26/24 05/26/24 Insulin Glargine,Hum.rec.anlog 12 units SQ HS 05/26/24 05/26/24 [Lantus Solostar Pen] Orphenadrine [Norflex] 100 mg PO BID 05/26/24 05/26/24 Semaglutide [Ozempic] 0.5 mg SQ FR 05/26/24 05/26/24 lisinopriL [Prinivil] 20 mg PO DAILY 05/26/24 05/26/24 Previous Rx's Medication Instructions Recorded Levofloxacin [Levaquin] 750 mg PO DAILY 6 Days #6 tab 05/26/24 Gabapentin 300 mg PO TID 3 Days #9 cap 06/06/24 HYDROcodone/APAP 5-325MG [[place] 1 tab PO Q6HR PRN 3 Days #12 tab 06/06/24 5-325] Allergies Allergy/AdvReac Type Severity Reaction Status Date / Time cephalexin [From Keflex] Allergy Rash/Hives Verified 06/06/24 02:30 Review of Systems ROS Statement: Those systems with pertinent positive or pertinent negative responses have been documented in the HPI. ROS Other: All systems not noted in ROS Statement are negative. Past Medical History Past Medical History: Diabetes Mellitus, GERD/Reflux, Hyperlipidemia, Hyper tension, Osteoarthritis (OA) Additional Past Medical History / Comment(s): IBS. Varicose veins. Optical migraines. Shingles History of Any Multi-Drug Resistant Organisms: None Reported Past Surgical History: Section, Cholecystectomy, Joint Replacement, Tubal Ligation Additional Past Surgical History / Comment(s): Pain injections, left thumb joint replacement. Past Anesthesia/Blood Transfusion Reactions: No Reported Reaction Past Psychological History: Depression Smoking Status: Never smoker, Unknown if ever smoked Past Alcohol Use History: None Reported Past Drug Use History: Marijuana - Past Family History Mother Family Medical History: Myocardial Infarction ([place]) Father Additional Family Medical History / Comment(s): DAD AT AGE 63 OF AORTIC ANEURYSM. General Exam Limitations: no limitations General appearance: alert, in no apparent distress Eye exam: Present: normal appearance, PERRL, EOMI. Absent: scleral icterus, conjunctival injection, periorbital swelling ENT exam: Present: normal exam, mucous membranes moist Neck exam: Present: normal inspection. Absent: tenderness, meningismus, lymphadenopathy Respiratory exam: Present: normal lung sounds bilaterally. Absent: respiratory distress, wheezes, rales, rhonchi, stridor Cardiovascular Exam: Present: regular rate, normal rhythm, normal heart sounds. Absent: systolic murmur, diastolic murmur, rubs, gallop, clicks GI/Abdominal exam: Present: soft, tenderness (right lower abdomen overlying skin vesicles/pustules with crusting and pain to palpation ), normal bowel sounds. Absent: distended, guarding, rebound, rigid Extremities exam: Present: normal inspection, full ROM, normal capillary refill. Absent: tenderness, pedal edema, joint swelling, calf tenderness Back exam: Present: normal inspection Skin exam: Present: warm, dry, intact, normal color. Absent: rash Course Vital Signs 06/06/24 06/06/24 09:05 13:44 Temperature 98 F Pulse Rate 77 65 Respiratory 18 18 Rate Blood Pressure 164/85 160/105 O2 Sat by Pulse 97 98 Oximetry Medical Decision Making - Medical Decision Making Was pt. sent in by a medical professional or institution (, PA, CABLE TELEVISION TECHNICIAN, urgent care, hospital, or long term...) When possible be specific @ -No Did you speak to anyone other than the patient for history (EMS, parent, family, police, friend...)? What history was obtained from this source @ -No Did you review nursing and triage notes (agree or disagree)? Why? @ -I reviewed and agree with nursing and triage notes Were old charts reviewed (outside hosp., previous admission, EMS record, old EKG, old radiological studies, urgent care reports/EKG's, long term records)? Report findings @ -Reviewed patient's previous emergency department visit note where she was discharged home with gabapentin to take for pain as needed. Differential Diagnosis (chest pain, altered mental status, abdominal pain women, abdominal pain men, vaginal bleeding, weakness, fever, dyspnea, syncope, headache, dizziness, GI bleed, back pain, seizure, CVA, palpatations, mental health, musculoskeletal)? @ -Differential Abdominal Pain Women: Appendicitis, Cholecystitis, diverticulosis, ischemic bowel, pancreatitis, hepatitis, UTI, gastroenteritis, AAA, incarcerated hernia, bowel obstruction, constipation, inflammatory bowel, hepatitis, peptic ulcer disease, splenic infarction, perforated viscus, vulvitis, ovarian torsion, PID, kidney stone, placenta abruption, this is not meant to be an all-inclusive list EKG interpreted by me (3pts min.). @ -none X-rays interpreted by me (1pt min.). @ -None done CT interpreted by me (1pt min.). @ -CT of the abdomen and pelvis with IV contrast reveals no significant abnormality noted. U/S interpreted by me (1pt. min.). @ -None done What testing was considered but not performed or refused? (CT, X-rays, U/S, labs)? Why? @ -None What meds were considered but not given or refused? Why? @ -None Did you discuss the management of the patient with other professionals (professionals i.e. , PA, CABLE TELEVISION TECHNICIAN, lab, RT, psych nurse, social services technician, loom stop checker, teacher, jailer/training officer, disability case manager)? Give summary @ -No Was smoking cessation discussed for >3mins.? @ -No Was critical care preformed (if so, how long)? @ -No Were there social determinants of health that impacted care today? How? (Homelessness, low income, unemployed, alcoholism, drug addiction, velazco sportation, low edu. Level, literacy, decrease access to med. care, usp, rehab)? @ -No Was there de-escalation of care discussed even if they declined (Discuss DNR or withdrawal of care, Hospice)? DNR status @ -No What co-morbidities impacted this encounter? (DM, HTN, Smoking, COPD, CAD, Cancer, CVA, ARF, Chemo, Hep., AIDS, mental health diagnosis, sleep apnea, morbid obesity)? @ -None Was patient admitted / discharged? Hospital course, mention meds given and route, prescriptions, significant lab abnormalities, going to OR and other pertinent info. @ -Discharge. 59-year-old female with abdominal pain. On my evaluation the patient she is resting comfortably no signs acute distress. she is endorsing right lower abdominal pain however states that pain feels like it is stabbing in her abdomen. She is noted to have overlying erythema, vesicles and pustules and crusting consistent with shingles that does not cross the dermatome or midline. Patient is provided with analgesics pending CT imaging and laboratory results. She is agree with this plan. CBC, CMP, amylase and lipase in the normal limits, lactic acid nonelevated at 0.8, urinalysis remarkable for 4+ glucose. CT of the abdomen pelvis with IV contrast negative for acute abdominal process. 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 Additionally, patient is provided with dose of Solu-Medrol through the IV. Recommend that she follows up with her primary care provider this week as well for further evaluation. All questions answered at bedside and strict return parameters have been discussed with the patient she is verbalized understanding. Case discussed with Dr. Natanael Undiagnosed new problem with uncertain prognosis? @ -No Drug Therapy requiring intensive monitoring for toxicity (Heparin, Nitro, Insulin, Cardizem)? @ -No Were any procedures done? @ -No Diagnosis/symptom? @ -Lower abdominal pain, shingles Acute, or Chronic, or Acute on Chronic? @ -acute Uncomplicated (without systemic symptoms) or Complicated (systemic symptoms)? @ -uncomplicated Side effects of treatment? @ -No Exacerbation, Progression, or Severe Exacerbation? @ -No Poses a threat to life or bodily function? How? (Chest pain, [place], [place], pneumonia, PE, COPD, DKA, ARF, appy, cholecystitis, CVA, Diverticulitis, Homicidal, Suicidal, threat to staff... and all critical care pts) @ -No - Lab Data Result diagrams: 06/06/24 12:25 06/06/24 12:25 Lab Results 06/06/24 06/06/24 06/06/24 Range/Units 10:35 12:25 12:25 WBC 8.3 (3.8-10.6) k/uL RBC 5.10 (3.80-5.40) m/uL Hgb 13.9 (11.4-16.0) gm/dL Hct 43.6 (34.0-46.0) % MCV 85.4 (80.0-100.0) fL MCH 27.3 (25.0-35.0) pg MCHC 31.9 (31.0-37.0) g/dL RDW 14.0 (11.5-15.5) % Plt Count 335 (150-450) k/uL MPV 7.0 Neutrophils % 54 % Lymphocytes % 35 % Monocytes % 6 % Eosinophils % 2 % Basophils % 1 % Neutrophils # 4.5 (1.3-7.7) k/uL Lymphocytes # 2.9 (1.0-4.8) k/uL Monocytes # 0.5 (0-1.0) k/uL Eosinophils # 0.1 (0-0.7) k/uL Basophils # 0.1 (0-0.2) k/uL Sodium 136 L (137-145) mmol/L Potassium 4.5 (3.5-5.1) mmol/L Chloride 104 (98-107) mmol/L Carbon Dioxide 27 (22-30) mmol/L Anion Gap 5 mmol/L BUN 18 H (7-17) mg/dL Creatinine 0.69 (0.52-1.04) mg/dL Est GFR (CKD-EPI)AfAm >90 (>60 ml/min/1.73 sqM) Est GFR (CKD-EPI)NonAf >90 (>60 ml/min/1.73 sqM) Glucose 213 H (74-99) mg/dL Plasma Lactic Acid Jad (0.7-2.0) mmol/L Calcium 9.0 (8.4-10.2) mg/dL Total Bilirubin 0.5 (0.2-1.3) mg/dL AST 34 (14-36) U/L ALT 50 H (4-34) U/L Alkaline Phosphatase 106 (38-126) U/L Total Protein 6.9 (6.3-8.2) g/dL Albumin 3.8 (3.5-5.0) g/dL Amylase 41 (30-110) U/L Lipase 91 (23-300) U/L Urine Color Colorless Urine Appearance Clear (Clear) Urine pH 5.0 (5.0-8.0) Ur Specific [place] 1.017 (1.001-1.035) Urine Protein Negative (Negative) Urine Glucose (UA) 4+ H (Negative) Urine Ketones Negative (Negative) Urine Blood Negative (Negative) Urine Nitrite Negative (Negative) Urine Bilirubin Negative (Negative) Urine Urobilinogen <2.0 (<2.0) mg/dL Ur Leukocyte Esterase Trace H (Negative) Urine RBC 1 (0-5) /hpf Urine WBC 2 (0-5) /hpf Urine Bacteria Rare H (None) /hpf Urine Mucus Rare H (None) /hpf 06/06/24 Range/Units 12:25 WBC (3.8-10.6) k/uL RBC (3.80-5.40) m/uL Hgb (11.4-16.0) gm/dL Hct (34.0-46.0) % MCV (80.0-100.0) fL MCH (25.0-35.0) pg MCHC (31.0-37.0) g/dL RDW (11.5-15.5) % Plt Count (150-450) k/uL MPV Neutrophils % % Lymphocytes % % Monocytes % % Eosinophils % % Basophils % % Neutrophils # (1.3-7.7) k/uL Lymphocytes # (1.0-4.8) k/uL Monocytes # (0-1.0) k/uL Eosinophils # (0-0.7) k/uL Basophils # (0-0.2) k/uL Sodium (137-145) mmol/L Potassium (3.5-5.1) mmol/L Chloride (98-107) mmol/L Carbon Dioxide (22-30) mmol/L Anion Gap mmol/L BUN (7-17) mg/dL Creatinine (0.52-1.04) mg/dL Est GFR (CKD-EPI)AfAm (>60 ml/min/1.73 sqM) Est GFR (CKD-EPI)NonAf (>60 ml/min/1.73 sqM) Glucose (74-99) mg/dL Plasma Lactic Acid Jad 0.8 (0.7-2.0) mmol/L Calcium (8.4-10.2) mg/dL Total Bilirubin (0.2-1.3) mg/dL AST (14-36) U/L ALT (4-34) U/L Alkaline Phosphatase (38-126) U/L Total Protein (6.3-8.2) g/dL Albumin (3.5-5.0) g/dL Amylase (30-110) U/L Lipase (23-300) U/L Urine Color Urine Appearance (Clear) Urine pH (5.0-8.0) Ur Specific [place] (1.001-1.035) Urine Protein (Negative) Urine Glucose (UA) (Negative) Urine Ketones (Negative) Urine Blood (Negative) Urine Nitrite (Negative) Urine Bilirubin (Negative) Urine Urobilinogen (<2.0) mg/dL Ur Leukocyte Esterase (Negative) Urine RBC (0-5) /hpf Urine WBC (0-5) /hpf Urine Bacteria (None) /hpf Urine Mucus (None) /hpf Disposition Clinical Impression: Shingles Disposition: HOME SELF-CARE Condition: Good Additional Instructions: Please return to the Emergency Department if symptoms worsen or any other concerns. Recommend that you take gabapentin as prescribed for intermittent nerve pain. Follow-up with your primary care provider for further evaluation. Is patient prescribed a controlled substance at d/c from ED?: No Referrals: Enrike Aparicio MD [Primary Care Provider] - 1-2 days Time of Disposition: 13:30
[2024-06-06 11:03] LABS: Appearance,Urine Clear (Clear); Bacteria,Urine Rare /hpf; Bilirubin,Urine Negative (Negative); Blood,Urine Negative (Negative); Color,Urine Colorless; Glucose,Urine (UA) 4+ (Negative); Ketones,Urine Negative (Negative); Leukocyte Esterase,Urine Trace (Negative); Mucus,Urine Rare /hpf; Nitrite,Urine Negative (Negative); Protein,Urine Negative (Negative); RBC,Urine 1 /hpf (0-5); Specific Gravity,Urine 1.017 (1.001-1.035); Urobilinogen,Urine <2.0 mg/dL (<2.0); WBC,Urine 2 /hpf (0-5)
[2024-06-06 12:35] LABS: Basophils # (A) 0.1 k/uL (0-0.2); Basophils % (A) 1 %; Eosinophils # (A) 0.1 k/uL (0-0.7); Eosinophils % (A) 2 %; HCT 43.6 % (34.0-46.0); HGB 13.9 gm/dL (11.4-16.0); Lymphocytes # (A) 2.9 k/uL (1.0-4.8); Lymphocytes % (A) 35 %; MCH 27.3 pg (25.0-35.0); MCHC 31.9 g/dL (31.0-37.0); MCV 85.4 fL (80.0-100.0); Monocytes # (A) 0.5 k/uL (0-1.0); Monocytes % (A) 6 %; Neutrophils # (A) 4.5 k/uL (1.3-7.7); Neutrophils % (A) 54 %; Platelet Count 335 k/uL (150-450); WBC 8.3 k/uL (3.8-10.6)
[2024-06-06 12:46] LABS: ALT 50 U/L (4-34); AST 34 U/L (14-36); African American GFR (CKD) >90 (>60 ml/min/1.73 sqM); Albumin 3.8 g/dL (3.5-5.0); Alkaline Phosphatase 106 U/L (38-126); Amylase 41 U/L (30-110); Anion Gap 5 mmol/L; Blood Urea Nitrogen 18 mg/dL (7-17); Carbon Dioxide 27 mmol/L (22-30); Chloride 104 mmol/L (98-107); Glucose 213 mg/dL (74-99); Lipase 91 U/L (23-300); Non-African American GFR(CKD) >90 (>60 ml/min/1.73 sqM); Potassium 4.5 mmol/L (3.5-5.1); Sodium 136 mmol/L (137-145); Total Bilirubin 0.5 mg/dL (0.2-1.3); Total Protein 6.9 g/dL (6.3-8.2)
[2024-06-06] MEDS: MORPHINE SULFATE 4 MG/ML SYRINGE IVP STA (12:46)
--- NOTE | 2024-06-06 13:15 | CT ---
EXAMINATION TYPE: CT abdomen pelvis w con DATE OF EXAM: 06/06/2024 COMPARISON: 05/26/2024 HISTORY: RT side abdominal pain, rt side shingles CT DLP: 1711.2 mGycm Automated exposure control for dose reduction was used. TECHNIQUE: Helical acquisition of images was performed from the lung bases through the pelvis. CONTRAST: Performed without Oral Contrast and with IV Contrast, patient injected with 100 mL of Isovue 300. FINDINGS: The lung bases are clear. There is surgical absence of the gallbladder. There is no biliary ductal dilatation. There is no focal mass or organomegaly involving the liver, pancreas, spleen or adrenal glands. There is no solid renal mass or hydronephrosis and there is homogeneous contrast enhancement of the r enal parenchyma. The caliber the abdominal aorta is normal is no retroperitoneal adenopathy or hemorr santiago. The bowel loops are normal in caliber and there is no evidence of dilatation or obstruction. No infla mmatory changes are identified in the bowel wall or mesentery. There is no free intraperitoneal air or fluid. No pelvic mass, free fluid, abscess or adenopathy. The osseous structures and soft tissues are intact. IMPRESSION: No significant abnormality seen. No interval change. [facility], , 06/06/2024 1:13 PM
[2024-06-06] MEDS: methylPREDNISolone SOD SUCCI 125 MG/2 ML VIAL IV STA (13:40)
[2024-06-06 13:51] VITALS: BP 160/105; PULSE 65
== END 2024-06-06 13:52 | disposition home or self-care (01) ==
LOC: EC 09:00
CPT/HCPCS: 36415; 74177; 80053; 81001; 82150; 83605; 83690; 85025; 96374; 96375; 99285

== ENCOUNTER 2024-06-14 07:40 | Emergency (ER) | payer OTHER ==
[2024-06-14 07:46] VITALS: BP 168/90; PULSE 98; RESP 18; TEMP 97.4
--- NOTE | 2024-06-14 07:47 | ED ---
General Adult HPI - General Chief complaint: Skin/Abscess/Foreign Body Stated complaint: shingles pain Time Seen by Provider: 06/14/24 07:42 Source: patient, RN notes reviewed Mode of arrival: ambulatory Limitations: no limitations - History of Present Illness Initial comments: 59-year-old female presents emergency department chief complaint of shingles pain. Patient states that she just finished her gabapentin and states that she did have Tracy. She has appointment at 2:00 today with her PCP regarding further medications. Patient states she cannot sleep because of the pain overnight. Patient had a rash on her right lower abdomen. - Related Data Home Medications Medication Instructions Recorded Confirmed Meloxicam 15 mg PO DAILY 05/16/15 05/26/24 Sertraline [Zoloft] 100 mg PO DAILY 05/16/15 05/26/24 Cholecalciferol (Vitamin D3) 1,250 mcg PO Q30D 05/26/24 05/26/24 [Vitamin D3 (1250 Mcg = 50,000 Iu)] Dicyclomine [Bentyl] 20 mg PO QID PRN 05/26/24 05/26/24 Empagliflozin [Jardiance] 25 mg PO DAILY 05/26/24 05/26/24 Esomeprazole Magnesium [NexIUM] 40 mg PO DAILY 05/26/24 05/26/24 Insulin Glargine,Hum.rec.anlog 12 units SQ HS 05/26/24 05/26/24 [Lantus Solostar Pen] Orphenadrine [Norflex] 100 mg PO BID 05/26/24 05/26/24 Semaglutide [Ozempic] 0.5 mg SQ FR 05/26/24 05/26/24 lisinopriL [Prinivil] 20 mg PO DAILY 05/26/24 05/26/24 Previous Rx's Medication Instructions Recorded Levofloxacin [Levaquin] 750 mg PO DAILY 6 Days #6 tab 05/26/24 Gabapentin 300 mg PO TID 3 Days #9 cap 06/06/24 HYDROcodone/APAP 5-325MG [Tracy 1 tab PO Q6HR PRN 3 Days #12 tab 06/06/24 5-325] Allergies Allergy/AdvReac Type Severity Reaction Status Date / Time cephalexin [From Keflex] Allergy Rash/Hives Verified 06/06/24 02:30 Review of Systems ROS Statement: Those systems with pertinent positive or pertinent negative responses have been documented in the HPI. ROS Other: All systems not noted in ROS Statement are negative. Past Medical History Past Medical History: Diabetes Mellitus, GERD/Reflux, Hyperlipidemia, Hypertension, Osteoarthritis (OA) Additional Past Medical History / Comment(s): IBS. Varicose veins. Optical migraines. Shingles History of Any Multi-Drug Resistant Organisms: None Reported Past Surgical History: Section, Cholecystectomy, Joint Replacement, Tubal Ligation Additional Past Surgical History / Comment(s): Pain injections, left thumb joint replacement. Past Anesthesia/Blood Transfusion Reactions: No Reported Reaction Past Psychological History: Depression Smoking Status: Never smoker, Unknown if ever smoked Past Alcohol Use History: None Reported Past Drug Use History: Marijuana - Past Family History Mother Family Medical History: Myocardial Infarction ([place]) Father Additional Family Medical History / Comment(s): DAD AT AGE 63 OF AORTIC ANEURYSM. General Exam Limitations: no limitations General appearance: alert, in no apparent distress Head exam: Present: atraumatic, normocephalic, normal inspection Respiratory exam: Present: normal lung sounds bilaterally. Absent: respiratory distress, wheezes, rales, rhonchi, stridor Cardiovascular Exam: Present: regular rate, normal rhythm, normal heart sounds. Absent: systolic murmur, diastolic murmur, rubs, gallop, clicks GI/Abdominal exam: Present: soft, normal bowel sounds, other (Resolving rash). Absent: distended, tenderness, guarding, rebound, rigid Course Vital Signs 06/14/24 07:41 Temperature 97.4 F L Pulse Rate 98 Respiratory 18 Rate Blood Pressure 168/90 O2 Sat by Pulse 96 Oximetry Medical Decision Making - Medical Decision Making Was pt. sent in by a medical professional or institution (, PA, PLATE FILLER, urgent care, hospital, or penitentiary...) When possible be specific @ -No Did you speak to anyone other than the patient for history (EMS, parent, family, police, friend...)? What history was obtained from this source @ -No Did you review nursing and triage notes (agree or disagree)? Why? @ -I reviewed and agree with nursing and triage notes Were old charts reviewed (outside hosp., previous admission, EMS record, old EKG, old radiological studies, urgent care reports/EKG's, penitentiary records)? Report findings @ -No old charts were reviewed Differential Diagnosis (chest pain, altered mental status, abdominal pain women, abdominal pain men, vaginal bleeding, weakness, fever, dyspnea, syncope, headache, dizziness, GI bleed, back pain, seizure, CVA, palpatations, mental health, musculoskeletal)? @ -Postherpetic pain, shingles EKG interpreted by me (3pts min.). @ -None X-rays interpreted by me (1pt min.). @ -None done CT interpreted by me (1pt min.). @ -None done U/S interpreted by me (1pt. min.). @ -None done What testing was considered but not performed or refused? (CT, X-rays, U/S, labs)? Why? @ -None What meds were considered but not given or refused? Why? @ -None Did you discuss the management of the patient with other professionals (professionals i.e. , PA, PLATE FILLER, lab, RT, psych nurse, social sciences lecturer, call center agent, teacher, officer lieutenant, supervisor case loading)? Give summary @ -No Was smoking cessation discussed for >3mins.? @ -No Was critical care preformed (if so, how long)? @ -No Were there social determinants of health that impacted care today? How? (Homelessness, low income, unemployed, alcoholism, drug addiction, transportation, low edu. Level, literacy, decrease access to med. care, care home, rehab)? @ -No Was there de-escalation of care discussed even if they declined (Discuss DNR or withdrawal of care, Hospice)? DNR status @ -No What co-morbidities impacted this encounter? (DM, HTN, Smoking, COPD, CAD, Cancer, CVA, ARF, Chemo, Hep., AIDS, mental health diagnosis, sleep apnea, morbid obesity)? @ -None Was patient admitted / discharged? Hospital course, mention meds given and route, prescriptions, significant lab abnormalities, going to OR and other pertinent info. @ -Discharge patient had postherpetic pain, shingles patient provided analgesics in emergency department she has an appointment later today with her PCP regarding further medications. Undiagnosed new problem with uncertain prognosis? @ -No Drug Therapy requiring intensive monitoring for toxicity (Heparin, Nitro, Insulin, Cardizem)? @ -No Were any procedures done? @ -No Diagnosis/symptom? @ -Postherpetic pain Acute, or Chronic, or Acute on Chronic? @ -Acute Uncomplicated (without systemic symptoms) or Complicated (systemic symptoms)? @ -Uncomplicated Side effects of treatment? @ -No Exacerbation, Progression, or Severe Exacerbation? @ -No Poses a threat to life or bodily function? How? (Chest pain, [place], [place], pneumonia, PE, COPD, DKA, ARF, appy, cholecystitis, CVA, Diverticulitis, Homicidal, Suicidal, threat to staff... and all critical care pts) @ -No Disposition Clinical Impression: Yovani, Post herpetic neuralgia Disposition: HOME SELF-CARE Condition: Stable Instructions (If sedation given, give patient instructions): Yovani (ED) Additional Instructions: Please return to the Emergency Department if symptoms worsen or any other concerns. Is patient prescribed a controlled substance at d/c from ED?: No Referrals: Enrike Aparicio MD [Primary Care Provider] - 1-2 days Time of Disposition: 07:47
[2024-06-14] MEDS: HYDROcodone/APAP 7.5-325MG 1 EACH TAB PO ONE (07:57)
== END 2024-06-14 08:03 | disposition home or self-care (01) ==
LOC: EC 07:40
CPT/HCPCS: 99283

== ENCOUNTER → 2024-07-12 | Outpatient (CLI) | payer OTHER ==
[2024-07-12 16:24] LABS: ALT 32 U/L (8-44); AST 18 U/L (13-35); Albumin/Globulin Ratio 1.48 Ratio (1.60-3.17); Alkaline Phosphatase 93 U/L (41-126); BUN/Creat Ratio 19.44 Ratio (12.00-20.00); Blood Urea Nitrogen 17.5 mg/dL (9.0-27.0); Calcium 9.7 mg/dL (8.7-10.3); Carbon Dioxide 26.3 mmol/L (21.6-31.8); Chloride 101 mmol/L (96-109); Globulin 2.7 g/dL (1.6-3.3); Glucose 134 mg/dL (70-110); Potassium 4.3 mmol/L (3.5-5.5); Sodium 138 mmol/L (135-145); Total Bilirubin 0.3 mg/dL (0.3-1.2); Total Protein 6.7 g/dL (6.2-8.2)
[2024-07-12 16:30] LABS: Basophils # (A) 0.08 X 10*3/uL (0.00-0.10); Basophils % (A) 0.8 %; Eosinophils # (A) 0.09 X 10*3/uL (0.04-0.35); Eosinophils % (A) 0.9 %; HCT 41.6 % (37.2-46.3); HGB 13.4 g/dL (12.0-15.0); Lymphocytes # (A) 3.59 X 10*3/uL (0.90-5.00); Lymphocytes % (A) 35.9 %; MCH 26.5 pg (27.0-32.0); MCHC 32.2 g/dL (32.0-37.0); MCV 82.2 FL (80.0-97.0); Mean Platelet Volume 10.4 FL (9.5-12.2); Monocytes # (A) 0.77 X 10*3/uL (0.20-1.00); Monocytes % (A) 7.7 %; NRBC Per 100 WBC 0 X 10*3/uL (0.00-0.01); Neutrophils # (A) 5.31 X 10*3/uL (1.80-7.70); Platelet Count 346 X 10*3/uL (140-440); RBC 5.06 X 10*6/uL (4.10-5.20); RDW 14.4 % (11.5-14.5); WBC 10.01 X 10*3/uL (4.50-10.00)
== END | disposition home or self-care (01) ==
LOC: LABWHC1 08:56
PROVIDERS: ATTEND Nurse Practitioner Family
DX: R74.01 Elevation of levels of liver transaminase levels (principal)
CPT/HCPCS: 36415; 80053; 83516; 85025